=== PATIENT | female | born 1995 | race Two or more races ===

== ENCOUNTER → 2022-06-21 | Outpatient (CLI) | payer BC ==
[2022-06-21 09:57] LABS: Basophils # (auto) 0 10 ^3/uL (0-0.2); Basophils % (auto) 0.2 % (0.0-2.0); Eosinophils # (auto) 0.1 10 ^3/uL (0-0.8); Eosinophils % (auto) 1.1 % (0.0-7.0); Hematocrit 39.8 % (36.0-46.0); Hemoglobin 13.5 g/dL (12.2-16.2); Lymphocytes # (auto) 1.3 10 ^3/uL (0.4-5.4); Mean Corpuscular Hemoglobin 29.6 pg (28.0-32.0); Mean Corpuscular Hgb Conc. 33.8 g/dL (32.0-36.0); Mean Corpuscular Volume 87.6 fL (80.0-100.0); Monocytes # (auto) 0.5 10 ^3/uL (0-1.3); Neutrophils # (auto) 7.9 10 ^3/uL (1.6-8.6); Neutrophils % (auto) 80.7 % (37.0-80.0); Red Blood Cells 4.54 10^6/uL (4.0-5.20); Red Cell Distribution Width 13.3 % (11.8-14.3); White Blood Cell 9.8 10^3/uL (4.4-10.8)
[2022-06-21 10:57] LABS: Alcohol, Urine < 3.0 mg/dL (0-10); Amphetamine Screen, Urine NEGATIVE (NEGATIVE); Barbiturate Scree,Urine NEGATIVE (NEGATIVE); Benzodiazephine Screen, Urine NEGATIVE (NEGATIVE); Cannabinoid Screen, Urine NEGATIVE (NEGATIVE); Cocaine Screen, Urine NEGATIVE (NEGATIVE); Opiate Scree,Urine NEGATIVE (NEGATIVE); Phencyclidine Screen, Urine NEGATIVE (NEGATIVE)
[2022-06-22 07:06] LABS: RPR Non Reactive (Non Reactive)
== END | disposition home or self-care (01) ==
LOC: LAB 09:17
PROVIDERS: ATTEND Obstetrics & Gynecology Obstetrics
DX: Z11.3 Encounter for screening for infections with a predominantly sexual mode of transmission (principal); N39.0 Urinary tract infection, site not specified; Z31.430 Encounter of female for testing for genetic disease carrier status for procreative management; Z34.80 Encounter for supervision of other normal pregnancy, unspecified trimester
CPT/HCPCS: 36415; 80307; 83036; 84112; 84144; 84702; 85025; 86592; 86703; 86762; 86850; 86900; 86901; 87086; 87340

== ENCOUNTER → 2022-09-14 | Outpatient (CLI) | payer BC ==
[2022-09-14 08:50] LABS: Basophils # (auto) 0 10 ^3/uL (0-0.2); Basophils % (auto) 0.3 % (0.0-2.0); Eosinophils # (auto) 0.2 10 ^3/uL (0-0.8); Hematocrit 37.8 % (36.0-46.0); Hemoglobin 13.2 g/dL (12.2-16.2); Lymphocytes # (auto) 1.7 10 ^3/uL (0.4-5.4); Mean Corpuscular Hemoglobin 31.2 pg (28.0-32.0); Mean Corpuscular Hgb Conc. 34.9 g/dL (32.0-36.0); Mean Corpuscular Volume 89.2 fL (80.0-100.0); Monocytes # (auto) 0.5 10 ^3/uL (0-1.3); Monocytes % (auto) 5.5 % (0.0-12.0); Neutrophils # (auto) 7.3 10 ^3/uL (1.6-8.6); Neutrophils % (auto) 75.2 % (37.0-80.0); Red Blood Cells 4.23 10^6/uL (4.0-5.20); Red Cell Distribution Width 12.3 % (11.8-14.3); White Blood Cell 9.8 10^3/uL (4.4-10.8)
[2022-09-14 09:19] LABS: Albumin 2.8 g/dL (3.4-5.0); Calcium 8.3 mg/dL (8.5-10.1); Potassium 3.8 mmol/L (3.5-5.1)
[2022-09-14 09:23] LABS: BUN/Creatinine Ratio 20.5; Bilirubin, Total 0.5 mg/dL (0.2-1.0); Total Protein 6.9 g/dL (6.4-8.2)
== END | disposition home or self-care (01) ==
LOC: LAB 08:38
PROVIDERS: ATTEND Nurse Practitioner Family
DX: Z34.90 Encounter for supervision of normal pregnancy, unspecified, unspecified trimester (principal); Z3A.00 Weeks of gestation of pregnancy not specified
CPT/HCPCS: 36415; 80053; 84702; 85025

== ENCOUNTER → 2022-09-28 | Outpatient (CLI) | payer BC ==
[2022-09-28 08:48] LABS: Basophils # (auto) 0 10 ^3/uL (0-0.2); Basophils % (auto) 0.4 % (0.0-2.0); Eosinophils # (auto) 0.2 10 ^3/uL (0-0.8); Eosinophils % (auto) 2.6 % (0.0-7.0); Hematocrit 35.7 % (36.0-46.0); Hemoglobin 12.5 g/dL (12.2-16.2); Lymphocytes # (auto) 1.6 10 ^3/uL (0.4-5.4); Lymphocytes % (auto) 17.5 % (10.0-50.0); Mean Corpuscular Hemoglobin 30.8 pg (28.0-32.0); Mean Corpuscular Hgb Conc. 34.9 g/dL (32.0-36.0); Mean Corpuscular Volume 88.2 fL (80.0-100.0); Monocytes # (auto) 0.6 10 ^3/uL (0-1.3); Monocytes % (auto) 6.2 % (0.0-12.0); Neutrophils # (auto) 6.9 10 ^3/uL (1.6-8.6); Neutrophils % (auto) 73.3 % (37.0-80.0); Red Blood Cells 4.05 10^6/uL (4.0-5.20); Red Cell Distribution Width 12.2 % (11.8-14.3); White Blood Cell 9.4 10^3/uL (4.4-10.8)
== END | disposition home or self-care (01) ==
LOC: LAB 08:35
PROVIDERS: ATTEND Obstetrics & Gynecology
DX: Z34.80 Encounter for supervision of other normal pregnancy, unspecified trimester (principal); Z3A.00 Weeks of gestation of pregnancy not specified
CPT/HCPCS: 36415; 82951; 83036; 85025

== ENCOUNTER 2022-10-20 16:11 | Observation (INO) | payer BC ==
[2022-10-20] MEDS ORDERED: METF500S PO (17:16)
[2022-10-20] MEDS ORDERED: PREN-96 PO (17:16)
== END 2022-10-20 17:22 | disposition home or self-care (01) ==
LOC: LDRP 16:11 → UNDOADMOB 16:11 → LDRP 16:32 → UNDODISOB 17:22
PROVIDERS: ADMIT Obstetrics & Gynecology; ATTEND Obstetrics & Gynecology
DX: O60.03 Preterm labor without delivery, third trimester (principal); O24.419 Gestational diabetes mellitus in pregnancy, unspecified control; Z3A.31 31 weeks gestation of pregnancy
CPT/HCPCS: 59025; 76818; 81002; 82962; 94760

== ENCOUNTER 2022-10-24 08:18 | Observation (INO) | payer BC ==
[~2022-10-24 08:18] MED LIST: METF500S PO; PREN-96 PO
== END 2022-10-24 17:27 | disposition home or self-care (01) ==
LOC: LDRP 16:11
PROVIDERS: ADMIT Obstetrics & Gynecology Obstetrics; ATTEND Obstetrics & Gynecology Obstetrics
DX: O24.419 Gestational diabetes mellitus in pregnancy, unspecified control (principal); O60.03 Preterm labor without delivery, third trimester; Z3A.32 32 weeks gestation of pregnancy
CPT/HCPCS: 59025; 76818; 81002; 82948; 82962; 94760; G0378

== ENCOUNTER 2022-10-27 16:10 | Observation (INO) | payer BC ==
[~2022-10-27] VITALS: Ht 162.6 cm; Wt 72.6 kg
== END 2022-10-27 17:20 | disposition home or self-care (01) ==
LOC: LDRP 16:10 → UNDOADMOB 16:10 → LDRP 16:13
PROVIDERS: ADMIT Obstetrics & Gynecology; ATTEND Obstetrics & Gynecology
DX: O24.419 Gestational diabetes mellitus in pregnancy, unspecified control (principal); O60.03 Preterm labor without delivery, third trimester; Z3A.32 32 weeks gestation of pregnancy
CPT/HCPCS: 59025; 76818; 81002; 82948; 82962; 94760; G0378

== ENCOUNTER 2022-10-31 09:13 | Observation (INO) | payer BC | END 2022-11-01 21:37 | disposition home or self-care (01) | LOC: LDRP 11-01 18:33 | PROVIDERS: ADMIT Obstetrics & Gynecology Obstetrics; ATTEND Obstetrics & Gynecology Obstetrics | DX: O24.419 Gestational diabetes mellitus in pregnancy, unspecified control (principal); O60.03 Preterm labor without delivery, third trimester; Z3A.33 33 weeks gestation of pregnancy | CPT/HCPCS: 59025; 76818; 81002; 82948; 82962; 94760; G0378 ==

== ENCOUNTER 2022-11-12 10:46 | Observation (INO) | payer BC ==
[~2022-11-12] VITALS: Ht 160 cm; Wt 73.5 kg
[2022-11-12] MEDS ORDERED: HYDR250I6 IM (12:07)
== END 2022-11-12 13:38 | disposition home or self-care (01) ==
LOC: LDRP 10:46
PROVIDERS: ADMIT Obstetrics & Gynecology; ATTEND Obstetrics & Gynecology
DX: O36.8130 Decreased fetal movements, third trimester, not applicable or unspecified (principal); O62.9 Abnormality of forces of labor, unspecified; O26.893 Other specified pregnancy related conditions, third trimester; R42 Dizziness and giddiness; O24.419 Gestational diabetes mellitus in pregnancy, unspecified control; Z3A.35 35 weeks gestation of pregnancy
CPT/HCPCS: 59025; 76818; 81002; 82948; 82962; 94760; G0378

== ENCOUNTER 2022-11-16 14:17 | Observation (INO) | payer BC | END 2022-11-16 15:27 | disposition home or self-care (01) | LOC: LDRP 14:17 → UNDOADMOB 14:17 → LDRP 14:38 | PROVIDERS: ADMIT Obstetrics & Gynecology; ATTEND Obstetrics & Gynecology | DX: O24.419 Gestational diabetes mellitus in pregnancy, unspecified control (principal); O62.9 Abnormality of forces of labor, unspecified; O99.333 Smoking (tobacco) complicating pregnancy, third trimester; F17.200 Nicotine dependence, unspecified, uncomplicated; Z3A.35 35 weeks gestation of pregnancy | CPT/HCPCS: 59025; 76818; 81002; 82948; 82962; 94760; G0378 ==

== ENCOUNTER → 2022-11-16 | Outpatient (CLI) | payer BC ==
[~2022-11-16] MED LIST changes: +HYDR250I6 IM
[2022-11-16 09:52] LABS: Basophils # (auto) 0 10 ^3/uL (0-0.2); Basophils % (auto) 0.4 % (0.0-2.0); Eosinophils # (auto) 0.2 10 ^3/uL (0-0.8); Hematocrit 35.6 % (36.0-46.0); Hemoglobin 11.9 g/dL (12.2-16.2); Lymphocytes # (auto) 1.6 10 ^3/uL (0.4-5.4); Lymphocytes % (auto) 18.5 % (10.0-50.0); Mean Corpuscular Hemoglobin 28.4 pg (28.0-32.0); Mean Corpuscular Hgb Conc. 33.4 g/dL (32.0-36.0); Mean Corpuscular Volume 84.8 fL (80.0-100.0); Monocytes # (auto) 0.4 10 ^3/uL (0-1.3); Monocytes % (auto) 5.2 % (0.0-12.0); Neutrophils # (auto) 6.2 10 ^3/uL (1.6-8.6); Neutrophils % (auto) 73.9 % (37.0-80.0); Red Blood Cells 4.19 10^6/uL (4.0-5.20); Red Cell Distribution Width 13.3 % (11.8-14.3); White Blood Cell 8.4 10^3/uL (4.4-10.8)
[2022-11-17 07:06] LABS: RPR Non Reactive (Non Reactive)
== END | disposition home or self-care (01) ==
LOC: LAB 09:30
PROVIDERS: ATTEND Obstetrics & Gynecology
DX: Z34.80 Encounter for supervision of other normal pregnancy, unspecified trimester (principal); Z3A.00 Weeks of gestation of pregnancy not specified
CPT/HCPCS: 36415; 84112; 85025; 86592

== ENCOUNTER 2022-11-22 08:10 | Observation (INO) | payer BC | END 2022-11-22 12:35 | disposition home or self-care (01) | LOC: LDRP 11:09 → UNDOADMOB 11:09 → LDRP 12:08 → UNDODISOB 12:35 | PROVIDERS: ADMIT Obstetrics & Gynecology; ATTEND Obstetrics & Gynecology | DX: O24.419 Gestational diabetes mellitus in pregnancy, unspecified control (principal); O99.333 Smoking (tobacco) complicating pregnancy, third trimester; F17.200 Nicotine dependence, unspecified, uncomplicated; Z3A.36 36 weeks gestation of pregnancy | CPT/HCPCS: 59025; 76818; 81002; 82948; 82962; G0378 ==

== ENCOUNTER 2022-11-24 07:44 | Observation (INO) | payer BC | END 2022-11-24 09:45 | disposition home or self-care (01) | LOC: LDRP 08:14 → UNDOADMOB 08:14 → LDRP 08:27 | PROVIDERS: ADMIT Obstetrics & Gynecology; ATTEND Obstetrics & Gynecology | DX: O24.419 Gestational diabetes mellitus in pregnancy, unspecified control (principal); O99.333 Smoking (tobacco) complicating pregnancy, third trimester; F17.200 Nicotine dependence, unspecified, uncomplicated; Z3A.36 36 weeks gestation of pregnancy | CPT/HCPCS: 59025; 76818; 81002; 82948; 82962; 94760; G0378 ==

== ENCOUNTER 2022-11-29 08:11 | Observation (INO) | payer BC | END 2022-11-29 09:42 | disposition home or self-care (01) | LOC: LDRP 08:11 → UNDOADMOB 08:11 → LDRP 08:51 | PROVIDERS: ADMIT Obstetrics & Gynecology; ATTEND Obstetrics & Gynecology | DX: O24.415 Gestational diabetes mellitus in pregnancy, controlled by oral hypoglycemic drugs (principal); O62.9 Abnormality of forces of labor, unspecified; Z3A.37 37 weeks gestation of pregnancy; Z79.84 Long term (current) use of oral hypoglycemic drugs | CPT/HCPCS: 59025; 76818; 81002; 82962; 94760; G0378 ==

== ENCOUNTER 2022-12-01 08:19 | Observation (INO) | payer BC | END 2022-12-01 09:33 | disposition home or self-care (01) | LOC: UNDOADMOB 08:19 → LDRP 08:19 | PROVIDERS: ADMIT Obstetrics & Gynecology; ATTEND Obstetrics & Gynecology | DX: O24.419 Gestational diabetes mellitus in pregnancy, unspecified control (principal); O62.9 Abnormality of forces of labor, unspecified; Z3A.37 37 weeks gestation of pregnancy | CPT/HCPCS: 59025; 76818; 81002; 82948; 82962; 94760; G0378 ==

== ENCOUNTER 2022-12-04 09:00 | Observation (INO) | payer BC | END 2022-12-04 10:47 | disposition home or self-care (01) | LOC: LDRP 09:00 | PROVIDERS: ADMIT Obstetrics & Gynecology; ATTEND Obstetrics & Gynecology | DX: O24.415 Gestational diabetes mellitus in pregnancy, controlled by oral hypoglycemic drugs (principal); O41.03X0 Oligohydramnios, third trimester, not applicable or unspecified; O62.9 Abnormality of forces of labor, unspecified; Z3A.38 38 weeks gestation of pregnancy; Z79.84 Long term (current) use of oral hypoglycemic drugs | CPT/HCPCS: 59025; 76818; 81002; 82948; 82962; G0378 ==

== ENCOUNTER 2022-12-06 08:22 | Observation (INO) | payer BC | END 2022-12-06 12:50 | disposition home or self-care (01) | LOC: LDRP 11:10 → UNDOADMOB 11:10 → LDRP 12:05 → UNDODISOB 12:30 | PROVIDERS: ADMIT Obstetrics & Gynecology; ATTEND Obstetrics & Gynecology | DX: O24.419 Gestational diabetes mellitus in pregnancy, unspecified control (principal); Z3A.38 38 weeks gestation of pregnancy | CPT/HCPCS: 59025; 76818; 81002; 82948; 94760; G0378 ==

== ENCOUNTER 2022-12-08 07:31 | Observation (INO) | payer BC | END 2022-12-08 12:32 | disposition home or self-care (01) | LOC: LDRP 10:01 → UNDOADMOB 10:01 → LDRP 10:34 → UNDODISOB 12:32 | PROVIDERS: ADMIT Obstetrics & Gynecology; ATTEND Obstetrics & Gynecology | DX: O24.419 Gestational diabetes mellitus in pregnancy, unspecified control (principal); Z3A.38 38 weeks gestation of pregnancy | CPT/HCPCS: 59025; 76818; 81002; 82948; 82962; 94760; G0378 ==

== ENCOUNTER 2022-12-11 20:05 | Inpatient (IN) | payer BC ==
[~2022-12-11] VITALS: Ht 157.5 cm; Wt 74.4 kg
[~2022-12-11 20:05] MED LIST changes: -HYDR250I6 IM
[2022-12-11] MEDS ORDERED: LIDOCAINE 2%HCL (LOCAL ANESTH.) INJ 20ML MDV IJ PRN (20:15)
[2022-12-11] MEDS ORDERED: WITCH HAZEL-GLYCERIN PAD TOP PRN (20:15)
[2022-12-11] MEDS ORDERED: BUTORPHANOL TARTRATE 2 MG/1 ML VIAL IV PRN ×2 (20:15)
[2022-12-11] MEDS ORDERED: PROMETHAZINE HCL 25 MG/ML 1ML IV PRN (20:15)
[2022-12-11] MEDS ORDERED: PHISODERM TOP SOLN 240ML BTL TOP PRN (20:15)
[2022-12-11] MEDS: LACTATED RINGER'S 1,000 ML IV SCH (21:00)
[2022-12-11 21:27] LABS: Urine Bacteria FEW /hpf (None Seen); Urine Blood Negative /uL (Negative); Urine Mucus FEW (None Seen); Urine Specific Gravity 1.032 (1.001-1.035); Urine WBC 5 /hpf (0 - 5)
[2022-12-11 21:42] LABS: Albumin 2.7 g/dL (3.4-5.0); BUN/Creatinine Ratio 19.3; Calcium 8.8 mg/dL (8.5-10.1); Hematocrit 34.4 % (36.0-46.0); Hemoglobin 11.2 g/dL (12.2-16.2); Mean Corpuscular Hemoglobin 27.7 pg (28.0-32.0); Mean Corpuscular Hgb Conc. 32.6 g/dL (32.0-36.0); Mean Corpuscular Volume 85.1 fL (80.0-100.0); Potassium 3.8 mmol/L (3.5-5.1); Red Blood Cells 4.04 10^6/uL (4.0-5.20); Red Cell Distribution Width 14.2 % (11.8-14.3); White Blood Cell 7.9 10^3/uL (4.4-10.8)
[2022-12-11 21:43] LABS: Amphetamine Screen, Urine NEGATIVE (NEGATIVE); Barbiturate Scree,Urine NEGATIVE (NEGATIVE); Benzodiazephine Screen, Urine NEGATIVE (NEGATIVE); Cannabinoid Screen, Urine NEGATIVE (NEGATIVE); Cocaine Screen, Urine NEGATIVE (NEGATIVE); Opiate Scree,Urine NEGATIVE (NEGATIVE); Phencyclidine Screen, Urine NEGATIVE (NEGATIVE)
[2022-12-11 21:45] LABS: Bilirubin, Total 0.5 mg/dL (0.2-1.0); Total Protein 6.6 g/dL (6.4-8.2)
[2022-12-11] MEDS: miSOPROStol 50 MCG per PRE-CUT 1/2 TAB PO PRN (21:45)
[2022-12-11 21:48] LABS: INR 0.9 (0.9-1.15); Partial Thromboplastin Time 25.9 sec (24.6-33.4)
[2022-12-11 21:53] LABS: Band Neutrophils % (manual) 0; Basophils % (manual) 0 (0.0-2.0); Metamyelocytes % 0
[2022-12-11 21:54] LABS: Blast Cells 0; Myelocytes % 0; Promyelocytes % 0; Reactive Lymphocytes 0
[2022-12-11] MEDS: DERMOPLAST 60ML BOTTLE TOP PRN (21:54)
[2022-12-11 22:11] LABS: Eosinophils % (manual) 1 (0-7); Lymphocytes % (manual) 16 (10.0-50.0); Monocytes % (manual) 2 (0-12)
[2022-12-12] MEDS: LACTATED RINGER'S 1,000 ML IV SCH ×2 (00:55→06:50)
[2022-12-12] MEDS: miSOPROStol 50 MCG per PRE-CUT 1/2 TAB PO PRN (01:45)
[2022-12-12] MEDS ORDERED: TERBUTALINE SULFATE 1 MG/ML 1ML VIAL SC PRN (07:00)
[2022-12-12] MEDS ORDERED: LACT. RINGERS/OXYTOCIN 20UNITS 500 ML IV ONE ×3 (07:00→12:30)
[2022-12-12] MEDS ORDERED: ONDANSETRON ODT 4 MG TAB PO PRN (08:45)
[2022-12-12] MEDS: ACETAMINOPHEN 325 MG TAB PO PRN ×2 (08:54→19:14)
[2022-12-12 10:47] VITALS: BP 98/58
[2022-12-12] MEDS: IBUPROFEN 600 MG TAB PO PRN ×2 (12:39→22:28)
[2022-12-12 14:55] VITALS: BP 96/60
[2022-12-12 19:00] VITALS: BP 104/61
[2022-12-12] MEDS ORDERED: DOCUSATE SOD 100 MG CAP PO SCH (22:00)
[2022-12-12] MEDS ORDERED: metFORMIN HYDROCHLORIDE 500 MG TAB PO SCH (22:00)
[2022-12-12 22:30] VITALS: BP 115/63
[2022-12-13 03:00] VITALS: BP 94/52
[2022-12-13] MEDS: ACETAMINOPHEN 325 MG TAB PO PRN (05:52)
[2022-12-13 06:44] VITALS: BP 110/73
[2022-12-13] MEDS ORDERED: MEASLES, MUMPS & RUBELLA VAC(MMRII) 0.5ML SC ONE (06:45)
[2022-12-13 08:06] LABS: RPR Non Reactive (Non Reactive)
[2022-12-13] MEDS: DERMOPLAST 60ML BOTTLE TOP PRN (10:12)
== END 2022-12-13 10:15 | disposition home or self-care (01) | DRG 807 ==
LOC: LDRP 20:05
PROVIDERS: ADMIT Obstetrics & Gynecology; ATTEND Obstetrics & Gynecology
PROC: 10D07Z6 Extraction of Products of Conception, Vacuum, Via Natural or Artificial Opening (ICD-10-PCS; principal; 2022-12-12)
PROC: 0HQ9XZZ Repair Perineum Skin, External Approach (ICD-10-PCS; 2022-12-12)
PROC: 10907ZC Drainage of Amniotic Fluid, Therapeutic from Products of Conception, Via Natural or Artificial Opening (ICD-10-PCS; 2022-12-12)
DX: O24.429 Gestational diabetes mellitus in childbirth, unspecified control (principal); Z37.0 Single live birth; Z3A.39 39 weeks gestation of pregnancy; Z20.822 Contact with and (suspected) exposure to COVID-19; O70.0 First degree perineal laceration during delivery
CPT/HCPCS: 36415; 59025; 59409; 76815; 80053; 80307; 81001; 82948; 82962; 85007; 85027; 85610; 85730; 86592; 86850; 86900; 86901; 87426; 94760; 96360; 96361; 96372; G0378; J2590

== ENCOUNTER → 2025-03-05 | Outpatient (CLI) | payer BC ==
[~2025-03-05] MED LIST changes: -METF500S PO; +METF500S3 PO
[2025-03-05 15:05] LABS: Basophils # (auto) 0.1 10 ^3/uL (0-0.2); Basophils % (auto) 0.6 % (0.0-2.0); Eosinophils # (auto) 0.2 10 ^3/uL (0-0.8); Eosinophils % (auto) 2.1 % (0.0-7.0); Hematocrit 42.9 % (36.0-46.0); Hemoglobin 14.7 g/dL (12.2-16.2); Lymphocytes # (auto) 2.3 10 ^3/uL (0.4-5.4); Lymphocytes % (auto) 19.6 % (10.0-50.0); Mean Corpuscular Hemoglobin 29.9 pg (28.0-32.0); Mean Corpuscular Hgb Conc. 34.2 g/dL (32.0-36.0); Mean Corpuscular Volume 87.6 fL (80.0-100.0); Monocytes # (auto) 0.6 10 ^3/uL (0-1.3); Monocytes % (auto) 4.8 % (0.0-12.0); Neutrophils # (auto) 8.4 10 ^3/uL (1.6-8.6); Neutrophils % (auto) 72.9 % (37.0-80.0); Nucleated Red Blood Cells % 0.1 %; Platelet Count (auto) 375 10^3/uL (140-450); White Blood Cell 11.5 10^3/uL (4.4-10.8)
[2025-03-05 15:36] LABS: Alanine Aminotransferase 24 U/L (7-40); Alkaline Phosphatase 58 U/L (46-116); Anion Gap 11 (5-15); BUN/Creatinine Ratio 11.9 (10.0-20.0); Bilirubin, Total 0.7 mg/dL (0.2-1.0); Calcium 10.3 mg/dL (8.7-10.4); Carbon Dioxide 24 mmol/L (20-31); Chloride 102 mmol/L (98-107); Glucose 100 mg/dL (74-106); Potassium 3.6 mmol/L (3.5-5.1); Sodium 137 mmol/L (136-145); Total Protein 7.7 g/dL (5.7-8.2)
[2025-03-05 15:38] LABS: Aspartate Aminotransferase 11 U/L (13-40); Blood Urea Nitrogen 7 mg/dL (9-23)
[2025-03-05 15:39] LABS: Thyroid Stimulating Hormone 0.83 uIU/mL (0.55-4.78)
[2025-03-05 15:49] LABS: Beta HCG, Quantitative 76915.6 mIU/mL (1.5-4.2)
== END | disposition home or self-care (01) ==
LOC: LAB 14:41
DX: Z32.01 Encounter for pregnancy test, result positive (principal); Z79.899 Other long term (current) drug therapy
CPT/HCPCS: 36415; 80053; 83036; 84443; 84702; 85025

== ENCOUNTER → 2025-03-26 | Outpatient (CLI) | payer BC ==
[2025-03-26 16:01] LABS: Basophils # (auto) 0 10 ^3/uL (0-0.2); Basophils % (auto) 0.5 % (0.0-2.0); Eosinophils # (auto) 0.2 10 ^3/uL (0-0.8); Eosinophils % (auto) 2.6 % (0.0-7.0); Hematocrit 39.8 % (36.0-46.0); Hemoglobin 14.2 g/dL (12.2-16.2); Lymphocytes # (auto) 1.6 10 ^3/uL (0.4-5.4); Lymphocytes % (auto) 19.9 % (10.0-50.0); Mean Corpuscular Hemoglobin 30.9 pg (28.0-32.0); Mean Corpuscular Hgb Conc. 35.7 g/dL (32.0-36.0); Mean Corpuscular Volume 86.5 fL (80.0-100.0); Monocytes # (auto) 0.6 10 ^3/uL (0-1.3); Monocytes % (auto) 6.8 % (0.0-12.0); Neutrophils # (auto) 5.7 10 ^3/uL (1.6-8.6); Neutrophils % (auto) 70.2 % (37.0-80.0); Platelet Count (auto) 281 10^3/uL (140-450); White Blood Cell 8.2 10^3/uL (4.4-10.8)
[2025-03-26 16:15] LABS: Amphetamine Screen, Urine Neg (NEGATIVE); Barbiturate Scree,Urine Neg (NEGATIVE); Benzodiazephine Screen, Urine Neg (NEGATIVE); Cannabinoid Screen, Urine Neg (NEGATIVE); Cocaine Screen, Urine Neg (NEGATIVE); Opiate Scree,Urine Neg (NEGATIVE); Phencyclidine Screen, Urine Neg (NEGATIVE)
[2025-03-28 07:07] LABS: Chlamydia Trachomatis, NAA Negative (Negative); Neisseria gonorrhoeae, NAA Negative (Negative)
== END | disposition home or self-care (01) ==
LOC: LAB 14:57
PROVIDERS: ATTEND Obstetrics & Gynecology
DX: Z34.80 Encounter for supervision of other normal pregnancy, unspecified trimester (principal); Z3A.00 Weeks of gestation of pregnancy not specified
CPT/HCPCS: 36415; 80307; 83036; 84144; 84702; 85025; 86703; 86762; 86780; 86850; 86900; 86901; 87086; 87340

== ENCOUNTER → 2025-04-09 | Outpatient (CLI) | payer BC | END | disposition home or self-care (01) | LOC: LAB 08:36 | PROVIDERS: ATTEND Obstetrics & Gynecology | DX: Z34.80 Encounter for supervision of other normal pregnancy, unspecified trimester (principal); Z3A.00 Weeks of gestation of pregnancy not specified | CPT/HCPCS: 82951 ==

== ENCOUNTER 2025-08-06 10:17 | Observation (INO) | payer BC ==
--- NOTE | 2025-08-08 16:30 | DVHDS2 ---
Physician Discharge Progress N Final Diagnosis: gdm 30wks Operations or Procedures: Operations or Procedures nst reactive reviwed,sono Condition on Discharge: Good Disposition: Home Discharge Instructions: Diet: Consistent carbohydrate Activity: Light activity Medications: na Follow Up Care: Specialist: 3d Discharge Statement: "Patient was advised to return to the ER or call 911 if any headaches, dizziness, shortness of breath, chest pain, abdominal pain, bleeding, fevers, or worsening of medical condition. Patient was counseled about treatment plan, medications, possible side effects, patientverbalized understanding. All questions were answered to the best of my ability. This discharge took greater then 30 minutes in planning, reviewing document ation, counseling the patient, and discussing with other team members." Visit Coding OBGYN Date of Service: Aug 06, 2025 Billing Provider: JORDY AVALOS DO SSDS MK 2 ADVANCED OPERATOR Common Visit Codes: [id number] OBS CARE (HIGH) SSDS MK 2 ADVANCED OPERATOR Procedure Codes: 30792-66- NON-STRESS TEST JORDY AVALOS DO Aug 08, 2025 16:30
== END 2025-08-06 11:20 | disposition home or self-care (01) ==
LOC: LDRP 10:17
PROVIDERS: ADMIT Obstetrics & Gynecology; ATTEND Obstetrics & Gynecology
DX: O24.419 Gestational diabetes mellitus in pregnancy, unspecified control (principal); Z3A.30 30 weeks gestation of pregnancy; Z98.890 Other specified postprocedural states
CPT/HCPCS: 59025; 81002; 82948; 82962; 94760; G0378

== ENCOUNTER 2025-08-13 08:01 | Observation (INO) | payer BC ==
[~2025-08-13] VITALS: Ht 162.6 cm; Wt 77.1 kg
--- NOTE | 2025-08-13 13:19 | DVHDS2 ---
Physician Discharge Progress N Final Diagnosis: gdm 31wks Operations or Procedures: Operations or Procedures nst reactive reviwed,sono Condition on Discharge: Good Disposition: Home Discharge Instructions: Diet: Consistent carbohydrate Activity: Light activity Medications: na Follow Up Care: Specialist: fu 4d Discharge Statement: "Patient was advised to return to the ER or call 911 if any headaches, dizziness, shortness of breath, chest pain, abdominal pain, bleeding, fevers, or worsening of medical condition. Patient was counseled about treatment plan, medications, possible side effects, patientverbalized understanding. All questions were answered to the best of my ability. This discharge took greater then 30 minutes in planning, reviewing docum entation, counseling the patient, and discussing with other team members." Visit Coding OBGYN Date of Service: Aug 13, 2025 Billing Provider: JORDY AVALOS DO PROFESSIONAL SECURITY OFFICER Common Visit Codes: [id number] OBS CARE (HIGH) PROFESSIONAL SECURITY OFFICER Procedure Codes: 32862-53- NON-STRESS TEST JORDY AVALOS DO Aug 13, 2025 13:19
== END 2025-08-13 09:02 | disposition home or self-care (01) ==
LOC: LDRP 08:09
PROVIDERS: ADMIT Obstetrics & Gynecology; ATTEND Obstetrics & Gynecology
DX: O24.419 Gestational diabetes mellitus in pregnancy, unspecified control (principal); Z3A.31 31 weeks gestation of pregnancy; Z98.890 Other specified postprocedural states
CPT/HCPCS: 59025; 81002; 82948; 82962; 94760; G0378

== ENCOUNTER 2025-08-20 06:08 | Observation (INO) | payer BC ==
--- NOTE | 2025-08-20 09:11 | DVH ---
CLINICAL HISTORY: Gestational diabetes. COMPARISON: BIOPHYSICAL PROFILE on DOS: 12/08/22, BPP on DOS: 12/08/22, BIOPHYSICAL PROFILE on DOS: 11/20 06/11 TECHNIQUE: biophysical profile was performed. Transabdominal sonographic images of the fetus we re obtained. FINDINGS: The fetus is in transverseposition, with head to the maternal right side. heart rate measures 139 BPM. Amniotic fluid index measures 11.5 cm. The placenta is posterior in position withou t evidence of previa or abruption visualized. Cervix is closed and measures up to 4.8 cm in length. BPP profile is an overall score of 8/8, with 2/2 points for breathing, with at least one episode of breathing over a 30 second duration during a 30 minute observation, 2/2 points for m ovements, with 3 or more discrete body or limb movements, 2/2 points for tone, with one or more episodes of extremity extension with return to flexion, or opening and closing of hand, and 2/ 2 points for amniotic fluid, with at least 1 pocket of amniotic fluid that measures 2 cm in 2 perpend icular planes. IMPRESSION: 1. BPP score of 8/8. 2. Transverse presentation with head to the maternal right side.
--- NOTE | 2025-08-20 13:55 | DVHDS2 ---
Physician Discharge Progress N Final Diagnosis: [id number] Operations or Procedures: Operations or Procedures nst reactive reviwed,sono Condition on Discharge: Good Disposition: Home Discharge Instructions: Diet: Regular, Consistent carbohydrate Activity: No Restrictions, As Tolerated Medications: na Follow Up Care: Specialist: 1w Discharge Statement: "Patient was advised to return to the ER or call 911 if any headaches, dizziness, shortness of breath, chest pain, abdominal pain, bleeding, fevers, or worsening of medical condition. Patient was counseled about treatment plan, medications, possible side effects, patientverbalized understanding. All questions were answered to the best of my ability. This discharge took greater then 30 minutes in planning, reviewing documentation, counseling the patient, and discussing with other team members." Visit Coding OBGYN Date of Service: Aug 20, 2025 Billing Provider: JORDY AVALOS DO EMERGENCY DEPARTMENT TECHNICIAN Common Visit Codes: [id number] OBS CARE (HIGH) EMERGENCY DEPARTMENT TECHNICIAN Procedure Codes: 38635-46- NON-STRESS TEST JORDY AVALOS DO Aug 20, 2025 13:55
== END 2025-08-20 09:13 | disposition home or self-care (01) ==
LOC: LDRP 08:05
PROVIDERS: ADMIT Obstetrics & Gynecology; ATTEND Obstetrics & Gynecology
DX: O24.419 Gestational diabetes mellitus in pregnancy, unspecified control (principal); Z3A.32 32 weeks gestation of pregnancy; Z98.890 Other specified postprocedural states
CPT/HCPCS: 76818; 81002; 82948; 82962; 94760; G0378; 59025; 76819

== ENCOUNTER 2025-08-23 08:03 | Observation (INO) | payer BC ==
--- NOTE | 2025-08-23 08:57 | DVH ---
BIOPHYSICAL PROFILE HISTORY: GDMA2 TECHNIQUE: Multiple transabdominal real-time grayscale sonographic images through the gravid uterus of the fetus with duplex Doppler color flow and M-mode spectral analysis FINDINGS: BIOPHYSICAL PROFILE: breathing score: 2 movement score: 2 tone score: 2 Quantitative AUDI score: 2 (AUDI: 9.7 Cm.) Total score: 8/8 The cervix obscured by head Single live fetus in cephalic presentation. heart rate 142 beats per minute. Posterior Grade 2-3 placenta without previa or abruption Single live fetus at 32 weeks 4 days Biophysical profile score 8/8 corresponding to an MELVIN of 10/14/2025 IMPRESSION: 1. Biophysical profile score: 8/8
--- NOTE | 2025-08-24 09:44 | DVHDS2 ---
Physician Discharge Progress N Final Diagnosis: GDM 32WKS Operations or Procedures: Operations or Procedures NST REACTIVE REVIWED,SONO Condition on Discharge: Good Disposition: Home Discharge Instructions: Diet: Consistent carbohydrate Activity: Light activity Medications: NA Follow Up Care: Specialist: 3D Discharge Statement: "Patient was advised to return to the ER or call 911 if any headaches, dizziness, shortness of breath, chest pain, abdominal pain, bleeding, fevers, or worsening of medical condition. Patient was counseled about treatment plan, medications, possible side effects, patientverbalized understanding. All questions were answered to the best of my ability. This discharge took greater then 30 minutes in planning, reviewing documenta tion, counseling the patient, and discussing with other team members." Visit Coding OBGYN Date of Service: Aug 23, 2025 Billing Provider: JORDY AVALOS DO SUBSTANCE ABUSE TECHNICIAN Common Visit Codes: [id number] OBS CARE (HIGH) SUBSTANCE ABUSE TECHNICIAN Procedure Codes: 49057-05- NON-STRESS TEST JORDY AVALOS DO Aug 24, 2025 09:44
== END 2025-08-23 09:19 | disposition home or self-care (01) ==
LOC: LDRP 08:03
PROVIDERS: ADMIT Obstetrics & Gynecology; ATTEND Obstetrics & Gynecology
DX: O24.419 Gestational diabetes mellitus in pregnancy, unspecified control (principal); Z3A.32 32 weeks gestation of pregnancy; Z98.890 Other specified postprocedural states
CPT/HCPCS: 76818; 81002; 82948; 82962; 94760; G0378; 59025; 76819

== ENCOUNTER 2025-08-27 07:37 | Observation (INO) | payer BC ==
--- NOTE | 2025-08-27 11:09 | DVH ---
BIOPHYSICAL PROFILE HISTORY: gdma2 Comparison Study: US BIOPHYSICAL PROFILE on DOS: 08/23/25, US BIOPHYSICAL PROFILE on DOS: 08/20/25, BIO PHYSICAL PROFILE on DOS: 12/08/22, BPP on DOS: 12/08/22, BIOPHYSICAL PROFILE on DOS: 12/06/22 TECHNIQUE: Multiple real-time grayscale sonographic images through the gravid uterus of the fetus wit h duplex doppler color flow and M-mode spectral analysis FINDINGS: BIOPHYSICAL PROFILE: breathing score: 2 movement score: 2 tone score: 2 Quantitative AUDI score: 2 (AUDI: 9.7 cm.) Total score: 8 The cervix is unremarkable Single live fetus in cephalic presentation. heart rate 145 beats per minute. Posterior placenta without previa or abruption IMPRESSION: Biophysical profile score: 8/
--- NOTE | 2025-08-27 14:04 | DVHDS2 ---
Physician Discharge Progress N Final Diagnosis: 33wks gdm Operations or Procedures: Operations or Procedures nst reactive reviwed,sono Condition on Discharge: Good Disposition: Home Discharge Instructions: Diet: Consistent carbohydrate Activity: No Restrictions, As Tolerated Medications: na Follow Up Care: Specialist: 1w Discharge Statement: "Patient was advised to return to the ER or call 911 if any headaches, dizziness, shortness of breath, chest pain, abdominal pain, bleeding, fevers, or worsening of medical condition. Patient was counseled about treatment plan, medications, possible side effects, patientverbalized understanding. All questions were answered to the best of my ability. This discharge took greater then 30 minutes in planning, reviewing documentation, counseling the patient, and discussing with other team members." Visit Coding OBGYN Date of Service: Aug 27, 2025 Billing Provider: JORDY AVALOS DO COATER HAND Common Visit Codes: [id number] OBS CARE (HIGH) COATER HAND Procedure Codes: 92645-48- NON-STRESS TEST JORDY AVALOS DO Aug 27, 2025 14:04
== END 2025-08-27 11:36 | disposition home or self-care (01) ==
LOC: LDRP 10:10
PROVIDERS: ADMIT Obstetrics & Gynecology; ATTEND Obstetrics & Gynecology
DX: O24.419 Gestational diabetes mellitus in pregnancy, unspecified control (principal); Z3A.33 33 weeks gestation of pregnancy; Z98.890 Other specified postprocedural states
CPT/HCPCS: 76818; 81002; 82948; 82962; 94760; G0378; 59025; 76819

== ENCOUNTER 2025-08-30 05:53 | Observation (INO) | payer BC ==
--- NOTE | 2025-08-30 09:32 | DVH ---
CLINICAL HISTORY: Gestational diabetes. COMPARISON: US BIOPHYSICAL PROFILE on DOS: 08/27/25, US BIOPHYSICAL PROFILE on DOS: 08/23/25, US BIOPHY SICAL PROFILE on DOS: 08/20/25 TECHNIQUE: biophysical profile was performed. Transabdominal sonographic images of the fetus we re obtained. FINDINGS: The fetus is in cephalic position. heart rate measures 147 BPM. Amniotic fluid index measures 9.6 cm. The placenta is fundal in position without evidence of previa or abruption visualize dii. BPP profile is an overall score of 8/8, with 2/2 points for breathing, with at least one episode of breathing over a 30 second duration during a 30 minute observation, 2/2 points for m ovements, with 3 or more discrete body or limb movements, 2/2 points for tone, with one or more episodes of extremity extension with return to flexion, or opening and closing of hand, and 2/ 2 points for amniotic fluid, with at least 1 pocket of amniotic fluid that measures 2 cm in 2 perpend icular planes. IMPRESSION: BPP score of 8/8.
--- NOTE | 2025-08-30 10:15 | DVHDS2 ---
Physician Discharge Progress N Final Diagnosis: GDM Secondary Diagnosis: Encounter for surveilance Operations or Procedures: Operations or Procedures NST/BPP/AUDI all reviewed, WNL Commentary: Commentary PATIENT: YONY STRINGER ACCT: [id number] UNIT: [id number] : 1995 LOC: LD ROOM / BED: TRIAGE1 / A AGE / SEX: 30 / F ADM STATUS: ADM IN SERVICE 7 ORDERING PHYSICIAN: NETTIE DEL ROSARIO DO PROCEDURE(s): BPP - BIOPHYSICAL PROFILE REASON: GDMA2 ORDER NUMBER(s): [id number], ACCESSION NUMBER(s): [id number] CLINICAL HISTORY: Gestational diabetes. COMPARISON: US BIOPHYSICAL PROFILE on DOS: 08/27/25, US BIOPHYSICAL PROFILE on DOS: 08/23/25, US BIOPHYSICAL PROFILE on DOS: 08/20/25 TECHNIQUE: biophysical profile was performed. Transabdominal sonographic images of the fetus were obtained. FINDINGS: The fetus is in cephalic position. heart rate measures 147 BPM. Amniotic fluid index measures 9.6 cm. The placenta is fundal in position without evidence of previa or abruption visualizedii. BPP profile is an overall score of 8/8, with 2/2 points for breathing, with at least one episode of breathing over a 30 second duration during a 30 minute observation, 2/2 points for movements, with 3 or more discrete body or limb movements, 2/2 points for tone, with one or more episodes of extremity extension with return to flexion, or opening and closing of hand, and 2/2 points for amniotic fluid, with at least 1 pocket of amniotic fluid that measures 2 cm in 2 perpendicular planes. IMPRESSION: BPP score of 8/8. ATED BY: DAVID SUNSHINE DO DICTATED DATE/TIME: 08/30/25928 Condition on Discharge: Stable Disposition: Home Discharge Instructions: Diet: Consistent carbohydrate Activity: No Restrictions, As Tolerated Medications: N/A Follow Up Care: Discharge Statement: "Patient was advised to return to the ER or call 911 if any headaches, dizziness, shortness of breath, chest pain, abdominal pain, bleeding, fevers, or worsening of medical condition. Patient was counseled about treatment plan, medications, possible side effects, patientverbalized understanding. All questions were answered to the best of my ability. This discharge took greater then 30 minutes in planning, reviewing documentation, counseling the patient, and discussing with other team members." Visit Coding OBGYN Date of Service: Aug 30, 2025 Billing Provider: NETTIE DEL ROSARIO DO FLEET TECHNICIAN Common Visit Codes: 72833-NBU/OBS SAME DATE (MOD) FLEET TECHNICIAN Procedure Codes: 96759-07- NON-STRESS TEST NETTIE DEL ROSARIO DO Aug 30, 2025 10:15
== END 2025-08-30 08:48 | disposition home or self-care (01) ==
LOC: LDRP 08:09
PROVIDERS: ADMIT Obstetrics & Gynecology; ATTEND Obstetrics & Gynecology
DX: O24.419 Gestational diabetes mellitus in pregnancy, unspecified control (principal); Z3A.33 33 weeks gestation of pregnancy; Z98.890 Other specified postprocedural states
CPT/HCPCS: 76818; 81002; 82948; 82962; 94760; G0378; 59025; 76819

== ENCOUNTER 2025-09-03 07:27 | Observation (INO) | payer BC ==
--- NOTE | 2025-09-03 08:59 | DVH ---
BIOPHYSICAL PROFILE HISTORY: GDMA2 Comparison Study: US BIOPHYSICAL PROFILE on DOS: 08/30/25, US BIOPHYSICAL PROFILE on DOS: 08/27/25, US BIOPHYSICAL PROFILE on DOS: 08/23/25, US BIOPHYSICAL PROFILE on DOS: 08/20/25, BIOPHYSICAL PROFILE on DOS: 12/08/22 TECHNIQUE: Multiple real-time grayscale sonographic images through the gravid uterus of the fetus wi th duplex Doppler color flow and M-mode spectral analysis FINDINGS: BIOPHYSICAL PROFILE: breathing score: 2 movement score: 2 tone score: 2 Quantitative AUDI score: 2 (AUDI: 9 Cm.) Total score: 8 The cervix is not visualized Single live fetus in cephalic presentation. heart rate 132 beats per minute. Right lateral/fundal placenta without previa or abruption IMPRESSION: Biophysical profile score: 8
--- NOTE | 2025-09-03 11:03 | DVHDS2 ---
Physician Discharge Progress N Final Diagnosis: gdm 36wks Operations or Procedures: Operations or Procedures nst reactive reviwed,sono Condition on Discharge: Good Disposition: Home Discharge Instructions: Diet: Consistent carbohydrate Activity: Light activity Medications: na Follow Up Care: Specialist: 3d Discharge Statement: "Patient was advised to return to the ER or call 911 if any headaches, dizziness, shortness of breath, chest pain, abdominal pain, bleeding, fevers, or worsening of medical condition. Patient was counseled about treatment plan, medications, possible side effects, patientverbalized understanding. All questions were answered to the best of my ability. This discharge took greater then 30 minutes in planning, reviewing documenta tion, counseling the patient, and discussing with other team members." Visit Coding OBGYN Date of Service: Sep 03, 2025 Billing Provider: JORDY AVALOS DO PROFESSOR OF BIOLOGY Common Visit Codes: [id number] OBS CARE (HIGH) PROFESSOR OF BIOLOGY Procedure Codes: 15361-62- NON-STRESS TEST JORDY AVALOS DO Sep 03, 2025 11:03
== END 2025-09-03 09:13 | disposition home or self-care (01) ==
LOC: LDRP 08:07 → UNDOADMOB 08:07 → LDRP 08:12 → UNDODISOB 09:13
PROVIDERS: ADMIT Obstetrics & Gynecology; ATTEND Obstetrics & Gynecology
DX: O24.419 Gestational diabetes mellitus in pregnancy, unspecified control (principal); Z3A.36 36 weeks gestation of pregnancy; Z98.890 Other specified postprocedural states; Z79.899 Other long term (current) drug therapy
CPT/HCPCS: 59025; 76819; 81002; 82948; 82962; 94760; G0378; 76818

== ENCOUNTER 2025-09-06 08:10 | Observation (INO) | payer BC ==
--- NOTE | 2025-09-06 09:38 | DVH ---
BIOPHYSICAL PROFILE HISTORY: gdma2 TECHNIQUE: Multiple real-time grayscale sonographic images through the gravid uterus of the fetus wi th duplex Doppler color flow. FINDINGS: BIOPHYSICAL PROFILE: breathing score: 2 movement score: 2 tone score: 2 Quantitative AUDI score: 2 Total score: 8 out of 8 Single live intrauterine . heart rate 131 beats per minute. AUDI 7.1 cm. Placenta pos teriorly positioned. lie cephalic. IMPRESSION: Biophysical profile score: 8 out of 8
--- NOTE | 2025-09-06 16:42 | DVHDS2 ---
Discharge Summary Date of Admission Sep 06, 2025 at 08:10 Date of Discharge: Sep 06, 2025 Admitting Diagnosis Thirty-four week GDM A2 Wounds: None Labs/Diagnostic Data: None Brief Hx & Hospital Course: NST BPP performed both reassuring Consults/Reason for consult GDM A2 Operations or Procedures NST BPP performed both reassuring Condition at Discharge: Good Final Diagnosis/Problems List 34 week GDM A2 Discharge Disposition: Home Discharge Instruct/Medications Diet: Regular, Consistent carbohydrate Activity: Light activity (Pelvic rest kick counts labor precautions carbohydrate precautions) Follow Up/Referral: As scheduled for routine NST BPP she has Scheduled Vit W/ Ferrous Fumara ( One Daily), 1 TAB PO DAILY, (Reported) Miscellaneous Medications Metformin HCl (Metformin Hydrochloride), 500 MG PO, (Reported) Discharge Statement: "Patient was advised to return to the ER or call 911 if any headaches, dizziness , shortness of breath, chest pain, abdominal pain, bleeding, fevers, or worsening of medical condition. Patient was counseled about treatment plan, medications, possible side effects, patientverbalized understanding. All questions were answered to the best of my ability. This discharge took greater then 30 minutes in planning, reviewing documentation, counseling the patient, and discussing with other team members." ASSESSMENT ASSESSMENT Assessment Visit Coding OBGYN Date of Service: Sep 06, 2025 Billing Provider: OLIVER ORO DO NEUROLOGY TEACHER Common Visit Codes: 52799-JKS/OBS SAME DATE (LOW), 18857-NPD/OBS SAME DATE (MOD), 71284-LSS/OBS SAME DATE (HIGH) NEUROLOGY TEACHER Procedure Codes: 90930-78- NON-STRESS TEST OLIVER ORO DO Sep 06, 2025 16:42
== END 2025-09-06 09:40 | disposition home or self-care (01) ==
LOC: LDRP 08:10
PROVIDERS: ADMIT Obstetrics & Gynecology; ATTEND Obstetrics & Gynecology
DX: O24.419 Gestational diabetes mellitus in pregnancy, unspecified control (principal); Z3A.34 34 weeks gestation of pregnancy; Z98.890 Other specified postprocedural states
CPT/HCPCS: 76818; 81002; 82948; 94760; G0378; 59025; 76819

== ENCOUNTER 2025-09-08 19:59 | Observation (INO) | payer BC ==
--- NOTE | 2025-09-08 21:19 | DVH ---
EXAM: US BIOPHYSICAL PROFILE HISTORY: GDMA2/ contractions COMPARISON: US BIOPHYSICAL PROFILE on DOS: 09/06/25 TECHNIQUE: Transabdominal and endovaginal real time montoya scale, color, and doppler evaluation. Perman ent images are maintained in the patient record. FINDINGS: Normal biophysical profile score 8/8. Cervix measures 3.2 cm. heart rate 142 beats per minute . Cephalic position. Amniotic fluid index 6.9 cm. Fundal placenta location. Cervix appears close d measuring 3.2 cm. Borderline low amniotic fluid index measuring 6.9 cm. IMPRESSION: 1. Normal biophysical profile score 2. Cephalic presentation. 3. Fundal placenta location.
--- NOTE | 2025-09-09 06:09 | DVHDS2 ---
Discharge Summary Date of Admission Sep 08, 2025 at 19:59 Date of Discharge: Sep 08, 2025 Admitting Diagnosis Thirty-four week rule out labor pelvic pain no evidence of labor after admission NST performed reassuring Wounds: None Labs/Diagnostic Data: Laboratory Results Test 09/08/25 20:21 POC Glucose 116 mg/dl (70-106) Brief Hx & Hospital Course: Pelvic exam and NST performed with no evidence of labor and/or SROM Consults/Reason for consult None Operations or Procedures NST Condition at Discharge: Good Final Diagnosis/Problems List 34 week pelvic pain no sign of labor Discharge Disposition: Home Discharge Instruct/Medications Diet: Regular Diet comment: Kick counts labor precautions Activity: No Restrictions, As Tolerated Follow Up/Referral: As scheduled Scheduled Vit W/ Ferrous Fumara ( One Daily), 1 TAB PO DAILY, (Reported) Miscellaneous Medications Metformin HCl (Metformin Hydrochloride), 500 MG PO, (Reported) Discharge Statement: "Patient was advised to return to the ER or call 911 if any headaches, dizziness, shortness of breath, chest pain, abdominal pain, bleeding, fevers, or worsening of medical condition. Patient was counseled about treatment plan, medications, possible side effects, patientverbalized understanding. All questions were answered to the best of my ability. This discharge took greater then 30 minutes in planning, reviewing document ation, counseling the patient, and discussing with other team members." ASSESSMENT ASSESSMENT Assessment Visit Coding OBGYN Date of Service: Sep 08, 2025 Billing Provider: OLIVER ORO DO REGISTERED NURSE CARDIAC Common Visit Codes: 99702-UQB/OBS SAME DATE (LOW), 49749-SDN/OBS SAME DATE (MOD), 50260-IMK/OBS SAME DATE (HIGH) REGISTERED NURSE CARDIAC Procedure Codes: 27396-60- NON-STRESS TEST OLIVER ORO DO Sep 09, 2025 06:09
== END 2025-09-08 21:04 | disposition home or self-care (01) ==
LOC: LDRP 19:59
PROVIDERS: ADMIT Obstetrics & Gynecology; ATTEND Obstetrics & Gynecology
DX: O62.9 Abnormality of forces of labor, unspecified (principal); Z3A.34 34 weeks gestation of pregnancy; Z98.890 Other specified postprocedural states; Z79.899 Other long term (current) drug therapy
CPT/HCPCS: 76818; 81002; 82948; 82962; G0378; 59025; 76819

== ENCOUNTER 2025-09-13 04:14 | Observation (INO) | payer BC ==
--- NOTE | 2025-09-13 05:36 | DVHDS2 ---
Physician Discharge Progress N Final Diagnosis: with IUP at 35w4d NST/BPP Not in labor Operations or Procedures: Operations or Procedures SUBJECTIVE Honey Johnson is a 30 yo with IUP at 35w4d presenting to the Place for r/o labor Patient states that she woke up at 0200 feeling crampy. She started timing the contractions and was getting that they were 5-7 minutes apart. She also got up and had a loose bowel movement. Denies leaking fluid, denies vaginal bleeding, and endorses positive movement. Denies changes in vaginal discharge, vaginal itching, or pelvic pain. Denies dysuria, hematuria, or urinary frequency/urgency. She was scheduled for testing for NST/BPP for GDMA2 this AM at 0800 PNC: good, with Dr Burks EDC: 10/14/25 OB Hx: x 2. Prior @ 35w5d. Second delivery at 39 weeks Review of Systems: Neuro: No complaints Heart: No complaints Lungs: No complaints GI: Cramping and diarrhea : No complaints Skin: No complaints Extremities: No complaints OBJECTIVE VSS FHR: Baseline: 135 Variability: Moderate Accelerations: Present Decelerations: Absent Category: 1 UCs: occasional. adjusted toco multiple times Neuro: A&O x4. No apparent distress. Affect appropriate Heart: Regular rate and rhythm Lungs: Clear bilaterally GI: Gravid. No tenderness : SVE discussed and performed with consent. Cervix closed. Skin: Dry and intact. No rashes or lesions Extremities: Cap refill WNL. BPP: 8/8. See report Cervical Length: 3.5 cm/ AUDI: 6cm. See report ASSESSMENT 30 yo with IUP at 35w4d Not in labor Category 1 Tracing PLAN -PO hydrated patient. States the cramping feels much better -Reviewed gestational diabetic diet and importance of maintaining stable blood glucose levels -Discussed labor precautions and kick counts. Answered all patient questions and concerns. Patient verbalizes understanding. -Continue with regularly scheduled appointments. Next appt Monday, 09/15. Will repeat AUDI at that time Other Interventions Other Interventions ORDERING PHYSICIAN: ANIL WOMACK CNM PROCEDURE(s): BPP - BIOPHYSICAL PROFILE REASON: labor/ GDMA2 ORDER NUMBER(s): [id number], ACCESSION NUMBER(s): [id number] BIOPHYSICAL PROFILE HISTORY: labor/ GDMA2 TECHNIQUE: Multiple transabdominal real-time grayscale sonographic images through the gravid uterus of the fetus with duplex Doppler color flow and M-mode spectral analysis FINDINGS: BIOPHYSICAL PROFILE: breathing score: 2 movement score: 2 tone score: 2 Quantitative AUDI score: 2 (AUDI: 6.0 cm; MVP : 3.7 cm ) Total score: 8/8 The cervix is closed and measures 3.5 cm in length. Single live fetus in cephalic presentation. heart rate 144 beats per minute. No placental previa or abruption Single live fetus at 35 weeks 4 days Biophysical profile score 8/8 corresponding to an MELVIN of 10/14/2025 IMPRESSION: 1. Biophysical profile score: 8/ Condition on Discharge: Good Disposition: Home Discharge Instructions: Diet: Consistent carbohydrate Activity: No Restrictions, As Tolerated Medications: No change. Follow Up Care: Discharge Statement: "Patient was advised to return to the ER or call 911 if any headaches, dizziness, shortness of breath, chest pain, abdominal pain, bleeding, fevers, or worsening of medical condition. Patient was counseled about treatment plan, medications, possible side effects, patientverbalized understanding. All questions were answered to the best of my ability. This discharge took greater then 30 minutes in planning, reviewing documentati on, counseling the patient, and discussing with other team members." Visit Coding OBGYN Date of Service: Sep 13, 2025 Billing Provider: ANIL WOMACK CNM HEAD MEN'S GOLF COACH Common Visit Codes: [id number] INP/OBS CARE(HIGH) HEAD MEN'S GOLF COACH Procedure Codes: 72436-55- NON-STRESS TEST ANIL WOMACK CNM Sep 13, 2025 05:36
--- NOTE | 2025-09-13 06:16 | DVH ---
BIOPHYSICAL PROFILE HISTORY: labor/ GDMA2 TECHNIQUE: Multiple transabdominal real-time grayscale sonographic images through the gravid uterus of the fetus with duplex Doppler color flow and M-mode spectral analysis FINDINGS: BIOPHYSICAL PROFILE: breathing score: 2 movement score: 2 tone score: 2 Quantitative AUDI score: 2 (AUDI: 6.0 cm; MVP : 3.7 cm ) Total score: 8/8 The cervix is closed and measures 3.5 cm in length. Single live fetus in cephalic presentation. heart rate 144 beats per minute. No placental previa or abruption Single live fetus at 35 weeks 4 days Biophysical profile score 8/8 corresponding to an MELVIN of 10/14/2025 IMPRESSION: 1. Biophysical profile score: 8/
== END 2025-09-13 06:46 | disposition home or self-care (01) ==
LOC: LDRP 04:14
PROVIDERS: ADMIT Obstetrics & Gynecology; ATTEND Obstetrics & Gynecology
DX: O62.9 Abnormality of forces of labor, unspecified (principal); O24.419 Gestational diabetes mellitus in pregnancy, unspecified control; Z3A.35 35 weeks gestation of pregnancy; Z79.899 Other long term (current) drug therapy
CPT/HCPCS: 76818; 81002; 82948; 82962; 94760; G0378; 59025; 76819

== ENCOUNTER 2025-09-15 14:06 | Observation (INO) | payer BC ==
--- NOTE | 2025-09-15 15:11 | DVH ---
BIOPHYSICAL PROFILE HISTORY: GDMA2 TECHNIQUE: Multiple transabdominal real-time grayscale sonographic images through the gravid uterus o f the fetus with duplex doppler color flow and M-mode spectral analysis FINDINGS: BIOPHYSICAL PROFILE: breathing score: 2 movement score: 2 tone score: 2 Quantitative AUDI score: 2 (AUDI: 9.2 cm.) Total score: 8/8 Single live fetus in cephalic presentation. heart rate 134 beats per minute. Grade 3 posterior placenta without previa or abruption Biophysical profile score 8/8 corresponding to an MELVIN of 10/14/25 IMPRESSION: Biophysical profile score: 8/8
== END 2025-09-15 15:11 | disposition home or self-care (01) ==
LOC: LDRP 14:06 → UNDOADMOB 14:06 → LDRP 14:14
PROVIDERS: ADMIT Obstetrics & Gynecology; ATTEND Obstetrics & Gynecology
DX: O24.419 Gestational diabetes mellitus in pregnancy, unspecified control (principal); Z3A.35 35 weeks gestation of pregnancy; Z98.890 Other specified postprocedural states
CPT/HCPCS: 76818; 81002; 82948; 82962; 94760; G0378; 76819

== ENCOUNTER 2025-09-18 06:50 | Observation (INO) | payer BC ==
[~2025-09-18] VITALS: Ht 162.6 cm; Wt 80.3 kg
--- NOTE | 2025-09-18 21:01 | DVH ---
BIOPHYSICAL PROFILE HISTORY: gdma2 TECHNIQUE: Multiple transabdominal real-time grayscale sonographic images through the gravid uterus of the fetus with duplex Doppler color flow and M-mode spectral analysis FINDINGS: BIOPHYSICAL PROFILE: breathing score: 2 movement score: 2 tone score: 2 Quantitative AUDI score: 2 (AUDI: 7.7 cm, MVP: 2.3 cm.) Total score: 8/8 The cervix obscured by head Single live fetus in vertex presentation. heart rate 135 beats per minute. Posterior Grade 3 placenta without previa or abruption Single live fetus at 36 weeks 2 days Biophysical profile score 8/8 corresponding to an MELVIN of 10/14/2025 IMPRESSION: 1. Biophysical profile score: 8/8 2. FHR: 135 beats per minute
--- NOTE | 2025-09-19 11:26 | DVHDS2 ---
Physician Discharge Progress N Final Diagnosis: IUP at 36w2d testing for GDMA2 Problems List: (1) 36 weeks gestation of (2) GDM, class A2 Operations or Procedures: Operations or Procedures SUBJECTIVE Honey Johnson is a 30 yo with IUP at 36w2d presenting for scheduled NST/BPP for GDMA2 Patient denies feeling UCs, denies leaking fluid, and denies vaginal bleeding. States positive movement. Does not have any concerns at this time EDC: 10/14/25 Ob Hx: x2, prior Med Hx: denies Surg Hx: denies Review of Systems: Neuro: No complaints Heart: No complaints Lungs: No complaints GI: No complaints : No complaints Skin: No complaints Extremities: No complaints OBJECTIVE VSS. See CPN FHR Tracing Baseline: 130 Variability: Moderate Accelerations: present Decelerations: absent CATEGORY 1 UCs: none noted Neuro: A&O x4. No apparent distress. Affect appropriate Heart: Regular rate and rhythm Lungs: Clear bilaterally GI: Gravid. No tenderness Skin: Dry and intact. No rashes or lesions bedside blood glucose: 124 (ate 1.5 hours ago) BPP: 06/27 ASSESSMENT with IUP at 36w2d testing GDM A2 PLAN -Continue with regularly scheduled testing twice weekly. Next appt on Monday, 09/22 -Encouraged patient to continue with adequately balanced carb consistent diet for GDM. Encouraged hydration and balancing activity with rest -Discussed labor precautions and kick counts. All questions answered and patient verbalizes understanding Condition on Discharge: Good Disposition: Home Discharge Instructions: Diet: Consistent carbohydrate Activity: No Restrictions, As Tolerated Medications: No change. See med list Follow Up Care: Specialist: -Next NST/BPP on Saturday 09/22 Discharge Statement: "Patient was advised to return to the ER or call 911 if any headaches, dizziness, shortness of breath, chest pain, abdominal pain, bleeding, fevers, or worsening of medical condition. Patient was counseled about treatment plan, medications, possible side effects, patientverbalized understanding. All questions were answered to the best of my ability. This discharge took greater then 30 minutes in planning, reviewing documentation, counseling the patient, and discussing with other team members." Visit Coding OBGYN Date of Service: Sep 18, 2025 Billing Provider: ANIL WOMACK CNM TAIL END RIDER Common Visit Codes: [id number] INP/OBS CARE (MOD) TAIL END RIDER Procedure Codes: 23136-26- NON-STRESS TEST ANIL WOMACK CNM Sep 18, 2025 20:59
== END 2025-09-18 21:09 | disposition home or self-care (01) ==
LOC: LDRP 19:54
PROVIDERS: ADMIT Obstetrics & Gynecology; ATTEND Obstetrics & Gynecology
DX: O24.419 Gestational diabetes mellitus in pregnancy, unspecified control (principal); O09.213 Supervision of pregnancy with history of pre-term labor, third trimester; Z3A.36 36 weeks gestation of pregnancy; Z98.890 Other specified postprocedural states; Z79.899 Other long term (current) drug therapy
CPT/HCPCS: 76818; 81002; 82948; 82962; 94760; G0378; 59025; 76819

== ENCOUNTER 2025-09-22 06:25 | Observation (INO) | payer BC ==
--- NOTE | 2025-09-22 10:23 | DVH ---
BIOPHYSICAL PROFILE HISTORY: GDMA1 TECHNIQUE: Multiple transabdominal real-time grayscale sonographic images through the gravid uterus of the fetus with duplex Doppler color flow and M-mode spectral analysis FINDINGS: BIOPHYSICAL PROFILE: breathing score: 2 movement score: 2 tone score: 2 Quantitative AUDI score: 2 (AUDI: 6.7 Cm.) Total score: 8 The cervix not well visualized Single live fetus in cephalic presentation. heart rate 132 beats per minute. Grade 3 posterior placenta without previa or abruption IMPRESSION: Biophysical profile score: 8
--- NOTE | 2025-09-22 23:04 | DVHDS2 ---
Discharge Summary Date of Admission Sep 22, 2025 at 09:14 Date of Discharge: Sep 22, 2025 Admitting Diagnosis Thirty-six weeks GDM A2 low amniotic fluid index Labs/Diagnostic Data: Laboratory Results Test 09/22/25 11:15 POC Glucose 85 mg/dl (70-106) Brief Hx & Hospital Course: GDM A2 low AUDI Consults/Reason for consult None Operations or Procedures BPP AUDI performed reassuring Condition at Discharge: Good Final Diagnosis/Problems List 36+ week GDM A2 low AUDI Discharge Disposition: Home Discharge Instruct/Medications Diet: Consistent carbohydrate Activity: No Restrictions, As Tolerated Follow Up/Referral: Weekly NST AUDI Scheduled Vit W/ Ferrous Fumara ( One Daily), 1 TAB PO DAILY, (Reported) Miscellaneous Medications Metformin HCl (Metformin Hydrochloride), 500 MG PO, (Reported) Discharge Statement: "Patient was advised to return to the ER or call 911 if any headaches, dizziness, shortness of breath, chest pain, abdominal pain, bleeding, fevers, or worsening of medical condition. Patient was counseled about treatment plan, medications, possible side effects, patientverbalized understanding. All questions were answered to the best of my ability. This discharge took greater then 30 minutes in planning, reviewing documentation, counseling the patient, and discussing with other team members." ASSESSMENT ASSESSMENT Assessment Visit Coding OBGYN Date of Service: Sep 22, 2025 Billing Provider: OLIVER ORO DO ELECTRONIC BENCH TECHNICIAN Common Visit Codes: [id number] INP/OBS CARE(HIGH), 80771-CPR/OBS SAME DATE (LOW), 33042-IIH/OBS SAME DATE (MOD) ELECTRONIC BENCH TECHNICIAN Procedure Codes: 68038-50- NON-STRESS TEST OLIVER ORO DO Sep 22, 2025 23:04
== END 2025-09-22 12:20 | disposition home or self-care (01) ==
LOC: UNDOADMOB 09:05 → LDRP 09:05 → UNDODISOB 12:20
PROVIDERS: ADMIT Obstetrics & Gynecology; ATTEND Obstetrics & Gynecology
DX: O24.419 Gestational diabetes mellitus in pregnancy, unspecified control (principal); O42.913 Preterm premature rupture of membranes, unspecified as to length of time between rupture and onset of labor, third trimester; Z3A.36 36 weeks gestation of pregnancy; Z98.890 Other specified postprocedural states
CPT/HCPCS: 76818; 81002; 82948; 82962; 96360; 96361; G0378; 59025; 76819

== ENCOUNTER 2025-09-23 07:02 | Observation (INO) | payer BC ==
--- NOTE | 2025-09-24 18:11 | DVH ---
BIOPHYSICAL PROFILE HISTORY: low AUDI TECHNIQUE: Multiple real-time grayscale sonographic images through the gravid uterus of the fetus with duplex Doppler color flow. FINDINGS: BIOPHYSICAL PROFILE: breathing score: 2 movement score: 2 tone score: 2 Quantitative AUDI score: 2 Total score: 8 out of 8 heart rate of 148 beats per minute. Placenta is posteriorly positioned. AUDI 8.7 cm. lie is cephalic. IMPRESSION: Biophysical profile score: 8 out of 8
--- NOTE | 2025-09-26 14:44 | DVHDS2 ---
Physician Discharge Progress N Final Diagnosis: gdm 38wks Operations or Procedures: Operations or Procedures nst reactive reviwed,sono Condition on Discharge: Good Disposition: Home Discharge Instructions: Diet: Consistent carbohydrate Activity: No Restrictions, As Tolerated Medications: na Follow Up Care: Specialist: 2d Discharge Statement: "Patient was advised to return to the ER or call 911 if any headaches, dizziness, shortness of breath, chest pain, abdominal pain, bleeding, fevers, or worsening of medical condition. Patient was counseled about treatment plan, medications, possible side effects, patientverbalized understanding. All questions were answered to the best of my ability. This discharge took greater then 30 minutes in planning, reviewing documentation, counseling the patient, and discussing with other team members." Visit Coding OBGYN Date of Service: Sep 25, 2025 Billing Provider: JORDY AVALOS DO HAND EXPANSION ENVELOPE MAKER Common Visit Codes: 55970-[id number] OBS CARE (HIGH) HAND EXPANSION ENVELOPE MAKER Procedure Codes: 62669-89- NON-STRESS TEST JORDY AVALOS DO Sep 26, 2025 14:44
== END 2025-09-24 18:38 | disposition home or self-care (01) ==
LOC: LDRP 09-24 17:10
PROVIDERS: ADMIT Obstetrics & Gynecology; ATTEND Obstetrics & Gynecology
DX: O42.913 Preterm premature rupture of membranes, unspecified as to length of time between rupture and onset of labor, third trimester (principal); O24.419 Gestational diabetes mellitus in pregnancy, unspecified control; Z3A.37 37 weeks gestation of pregnancy; Z98.890 Other specified postprocedural states
CPT/HCPCS: 76818; 81002; 82948; 82962; 94760; G0378; 59025; 76819

== ENCOUNTER 2025-09-26 05:18 | Observation (INO) | payer BC ==
[~2025-09-26] VITALS: Ht 162.6 cm; Wt 65.8 kg
--- NOTE | 2025-09-27 09:30 | DVH ---
CLINICAL HISTORY: Low amniotic fluid index. COMPARISON: US BIOPHYSICAL PROFILE on DOS: 09/24/25, US BIOPHYSICAL PROFILE on DOS: 09/22/25, US BIOPHYSICAL PROFILE on DOS: 09/18/25 TECHNIQUE: biophysical profile was performed. Transabdominal sonographic images of the fetus were obtained. FINDINGS: The fetus is in cephalic position. heart rate measures 123 BPM. Amniotic fluid index measures 6.6 cm. MVP measures 2.5 cm. The placenta is posterior in position. Grade 3 placenta with no visualized evidence of previa or abruption at this time. BPP profile is an overall score of 8/8, with 2/2 points for breathing, with at least one episode of breathing over a 30 second duration during a 30 minute observation, 2/2 points for movements, with 3 or more discrete body or limb movements, 2/2 points for tone, with one or more episodes of extremity extension with return to flexion, or opening and closing of hand, and 2/2 points for amniotic fluid, with at least 1 pocket of amniotic fluid that measures 2 cm in 2 perpendicular planes. IMPRESSION: 1. BPP score of 8/8. 2. Amniotic fluid index measures 6.6 cm with MVP of 2.5 cm.
[2025-09-27] MEDS: LACTATED RINGER'S 1,000 ML IV ONE (09:43)
--- NOTE | 2025-09-27 13:28 | DVH ---
BIOPHYSICAL PROFILE HISTORY: AUDI recheck s/p IV bolus TECHNIQUE: Multiple transabdominal real-time grayscale sonographic images through the gravid uterus of the fetus with duplex Doppler color flow and M-mode spectral analysis FINDINGS: BIOPHYSICAL PROFILE: Biophysical profile 09/27/2025 9:01 a.m. 06/27. presentation cephalic FHR:156 bpm AUDI: 8.36 CM ; MVP: 3.9 cm AUDI results from 09/27/2025 at 9:00 a.m. AUDI: 6.6; MVP: 2.5 CM IMPRESSION: 1. Biophysical profile score: 8/8 2. AUDI: CURRENTLY 8.36 CM; MVP: 3.9 CM at 0900 am today AUDI= 6.6 cm; MVP: 2.5 cm. 3. FHR: 156
--- NOTE | 2025-09-30 17:01 | DVHDS2 ---
Physician Discharge Progress N Final Diagnosis: gdma2 37wks Operations or Procedures: Operations or Procedures nst reactive reviwed,sono Condition on Discharge: Good Disposition: Home Discharge Instructions: Diet: Regular Activity: No Restrictions, As Tolerated Medications: na Follow Up Care: Specialist: 3d Discharge Statement: "Patient was advised to return to the ER or call 911 if any headaches, dizziness, shortness of breath, chest pain, abdominal pain, bleeding, fevers, or worsening of medical condition. Patient was counseled about treatment plan, medications, possible side effects, patientverbalized understanding. All questions were answered to the best of my ability. This discharge took greater then 30 minutes in planning, reviewing document ation, counseling the patient, and discussing with other team members." Visit Coding OBGYN Date of Service: Sep 27, 2025 Billing Provider: JORDY AVALOS DO TITLE INSURANCE AGENT Common Visit Codes: [id number] OBS CARE (HIGH) TITLE INSURANCE AGENT Procedure Codes: 18052-93- NON-STRESS TEST JORDY AVALOS DO Sep 30, 2025 17:01
== END 2025-09-27 13:08 | disposition home or self-care (01) ==
LOC: LDRP 09-27 08:13
PROVIDERS: ADMIT Obstetrics & Gynecology; ATTEND Obstetrics & Gynecology
DX: O24.419 Gestational diabetes mellitus in pregnancy, unspecified control (principal); Z3A.37 37 weeks gestation of pregnancy; Z98.890 Other specified postprocedural states
CPT/HCPCS: 76815; 76818; 81002; 82948; 82962; 94760; G0378; 59025; 76819

== ENCOUNTER 2025-09-28 05:47 | Observation (INO) | payer BC ==
[~2025-09-28] VITALS: Ht 160 cm; Wt 81.6 kg
--- NOTE | 2025-09-28 08:54 | DVH ---
BIOPHYSICAL PROFILE HISTORY: Low AUDI Comparison Study: US OBSTERICAL LIMITED on DOS: 09/27/25, US BIOPHYSICAL PROFILE on DOS: 09/27/25, US BIOPHYSICAL PROFILE on DOS: 09/24/25, US BIOPHYSICAL PROFILE on DOS: 09/22/25, US BIOPHYSICAL PROFILE on DOS: 09/18/25 TECHNIQUE: Multiple real-time grayscale sonographic images through the gravid uterus of the fetus with duplex Doppler color flow and M-mode spectral analysis Findings/impression: Single intrauterine with visualized heart rate. No placenta previa or abruption at this time. Cephalic presentation. Posterior placenta, grade 3. heart rate is 122 beats per minute. AUDI measures 6.1 cm. Previous AUDI 8.3 cm.
== END 2025-09-28 09:43 | disposition home or self-care (01) ==
LOC: LDRP 08:12
PROVIDERS: ADMIT Obstetrics & Gynecology; ATTEND Obstetrics & Gynecology
DX: O24.419 Gestational diabetes mellitus in pregnancy, unspecified control (principal); O42.913 Preterm premature rupture of membranes, unspecified as to length of time between rupture and onset of labor, third trimester; Z3A.37 37 weeks gestation of pregnancy; Z98.890 Other specified postprocedural states
CPT/HCPCS: 59025; 76815; 81002; 82948; 82962; 94760; G0378

== ENCOUNTER 2025-09-28 22:09 | Inpatient (IN) | payer BC ==
[~2025-09-28] VITALS: Ht 162.6 cm; Wt 81.6 kg
[2025-09-28] MEDS ORDERED: PENICILLIN G POT 5MIL/D5 50ML 50 ML IV ONE (22:30)
[2025-09-28 23:01] LABS: Hematocrit 32.3 % (36.0-46.0); Hemoglobin 11.1 g/dL (12.2-16.2); Mean Corpuscular Hemoglobin 29.1 pg (28.0-32.0); Mean Corpuscular Volume 84.7 fL (80.0-100.0); Nucleated Red Blood Cells % 0.1 %
[2025-09-28 23:06] LABS: Urine Protein, UAD Negative (Negative)
[2025-09-28 23:18] LABS: Amphetamine Screen, Urine Neg (NEGATIVE); Benzodiazephine Screen, Urine Neg (NEGATIVE)
[2025-09-28 23:18] LABS: Alanine Aminotransferase 13 U/L (7-40); Albumin 4.1 g/dL (3.2-4.8); Anion Gap 11 (5-15); BUN/Creatinine Ratio 13.6 (10.0-20.0); Calcium 9.3 mg/dL (8.7-10.4); Carbon Dioxide 21 mmol/L (20-31); Glucose 90 mg/dL (74-106); Potassium 3.7 mmol/L (3.5-5.1); Sodium 139 mmol/L (136-145); Total Protein 6.8 g/dL (5.7-8.2); Uric Acid 5.0 mg/dL (3.1-7.8)
[2025-09-28 23:19] LABS: Barbiturate Scree,Urine Neg (NEGATIVE); Cannabinoid Screen, Urine Neg (NEGATIVE); Cocaine Screen, Urine Neg (NEGATIVE); Opiate Scree,Urine Neg (NEGATIVE); Phencyclidine Screen, Urine Neg (NEGATIVE)
[2025-09-28 23:19] LABS: Alkaline Phosphatase 186 U/L (46-116); Bilirubin, Total 0.6 mg/dL (0.2-1.0); Blood Urea Nitrogen 6 mg/dL (9-23); Chloride 107 mmol/L (98-107)
--- NOTE | 2025-09-29 00:14 | DVHHP2 ---
OB CC & HPI Date Date of Admission: Sep 28, 2025 Patient Identification: : 4 Para: 2 EDC: Oct 14, 2025 Chief Complaints: Reason for admission: induction of labor Indication for induction: medical complication Other reason for admission: Gestational Diabetes in A2 Insulin dependant Decreased Amniotic fluid Admission Nurse Assessment Rev: Yes History of Present Complaints L&D Admission Note 09/28/2025 Subjective 30 y/o (1,1,1,2) @37w5d EGClaudette presents to the Place for scheduled IOL for GDM A1/ Decreased Amniotic fluid level Reports normal movements, no leakage of fluid or vaginal bleeding. Received care with Dr Burks LMP: 01/07/2025 EDC: 10/14/[address] Burks labs: Blood Type: O positive GBS: Negative RPR: non reactive Problems in : GDM A2/ Oligohydramnios Past History OB: X1/ PTD/ GDM A2/ SAB G#1 03/2021 36w0d / PTD G#2 11/2022 39w0d / GDM A2 G#3- Current Contact Lens Flashing Puncher PMH : GDM A2 PSH: Denies Medications: PNV, Social Hist: denies Objective PE:A&O x3, Well groomed Afebrile, VSS Heart & Lungs: Normal sound Abdomen: Gravid non- tender, fundal ht: SVE: CX 1/thick/High / Cephalic presentation Assessment 30y/o (1,1,1,2) 37w5d IUP Induction of labor FHR baseline 145 bpm, mod variability , Accelerations present, no deceleration; Category 1 tracing Contractions: Uterine irritability noted Plan: Admit IOL for GDM/Oligo Misoprostol 50 mcg oral per protocol Epidural for pain management PRN Plan of care discussed with patient and partner Process, Risks, benefits, of available management options discussed,, Internal monitoring of UCs & FHT, AROM, amnioinfusion etc only when indicated Patient agrees Informed Consent obtained Consent for possible blood transfusion obtained. All questions answered. Admit to Place IOL Routine L&D Admission orders EFM per policy Encourage ambulation and/exercises / frequent position change to facilitate labor & descent Supportive care Anticipate Past Medical History Cardiac: No pertinent Hx Pulmonary: No pertinent Hx Central Nervous System: No pertinent Hx GI: No pertinent Hx Hemotology/Oncology: No pertinent Hx Hepatobiliary: No pertinent Hx Psychiatric: No pertinent Hx Musculoskeletal: No pertinent Hx Rheumotologic: No pertinent Hx Infectious Disease: No peritnent Hx ENT: No pertinent Hx Renal/: No pertinent Hx Endocrine: Other Dermatology: No pertinent Hx Past Surgical History: No pertinent Hx OB History OB History Care: Good Care Ultrasounds: Normal mid trimester US Abnormal Ultrasound Findings: Decreased Amniotic fluid Obstetrical Complications: Gestational Diabetes Medical Complications: None Allergies: Coded Allergies: NO KNOWN ALLERGIES (Unverified , 11/12/22) Home Meds Reported Medications Metformin HCl (Metformin Hydrochloride) 500 Mg/5 Ml Cinthia, 500 MG PO, ML 10/20/22 Vit W/ Ferrous Fumara ( One Daily) Daily Tab, 1 TAB PO DAILY, #90 TAB 3 Refills 10/20/22 Current Medications Current Medications Medications (Trade) Dose Ordered Sig/Joshua Route PRN Reason Start Time Stop Time Status Last Admin Lactated Ringer's 1,000 ml @ 125 mls/hr Q8H IV 09/28/25 22:30 Nalbuphine HCl (Nubain) 10 mg Q4HP PRN IV MODERATE PAIN (4-6 PAIN SCALE) 09/28/25 22:30 Penicillin G Potassium [id number] units/Dextrose 50 ml @ 100 mls/hr Q4H IV 09/29/25 02:30 09/28/25 23:11 DC Yana Hancock (Tucks) 1 pad PRN PRN TOP PERINEAL AREA DISCOMFORT 09/28/25 22:30 Sodium Lauryl Sulfate (Phisoderm) 240 ml PRN PRN TOP PERINEAL AREA DISCOMFORT 09/28/25 22:30 Benzocaine (Dermoplast) 1 applic PRN PRN TOP PERINEAL AREA DISCOMFORT 09/28/25 22:30 Misoprostol (Cytotec) 50 mcg Q4HPRN PRN PO CERVICAL RIPENING 09/28/25 22:30 Lidocaine HCl (Xylocaine) 20 ml ONCE PRN IJ PERINEAL AREA DISCOMFORT 09/28/25 22:30 Family & Social History Family/Social History Blood Type: O+ Rubella: immune RPR/VDRL: Negative GBS Status: Negative HBsAG: Negative Review of Systems Constitutional: No symptom reported Ears, Nose, & Throat: No symptom reported Eyes: No symptom reported Pulmonary/Respiratory: No symptom reported Cardiovascular: No symptom reported Gastrointestinal: No symptom reported Genitourinary: No symptom reported Musculoskeletal: No symptom reported Skin: No symptom reported Psychiatric: No symptom reported Endocrine: No symptom reported Hemotologic/Lymphatic: No symptom reported OB Admission Exam Physical Exam HEENT: NCAT Heart: Rhythm Normal Lungs: Clear Abdomen: Gravid Extremities: Normal Reflexes: Normal Cervical Dilatation: 1cm Effacement: 25% Station: Ballotable Membranes: Intact Heart Rate: 140's Accelerations: Accelerations Present Short Term Variability: Present Halfway Variability: Average (6-25) Contractions on Admission: None Intensity: Mild OB Plan Plan Admitting Diagnosis: induction of labor Plan: Induction Induction Methd: Misoprostol protocol Visit Coding OBGYN Date of Service: Sep 29, 2025 Billing Provider: SVETA ALVAREZ CNM AIRLINE MECHANIC Common Visit Codes: [id number] INP/OBS CARE (LOW), [id number] INP/OBS CARE (MOD) SVETA ALVAREZMNov 2024 00:14
[2025-09-29 00:42] LABS: INR 0.93 (0.9-1.15); Partial Thromboplastin Time 27.0 SEC (24.5-34.5); Prothrombin Time 9.9 sec (9.3-11.8)
[2025-09-29 00:44] LABS: Fibrinogen 521.0 mg/dL (177-375)
[2025-09-29] MEDS ORDERED: PENICILLIN G POTASSIUM 2,500,000 UNITS in D5W 5% 50 ML IV SCH (02:30)
[2025-09-29] MEDS: NALOXONE HCL 0.4 MG/ML VIAL IV ONE (03:00)
[2025-09-29] MEDS: LACTATED RINGER'S 500 ML IV ONE (03:00)
--- NOTE | 2025-09-29 05:07 | DVHPN2 ---
CNM Labor Progress Note Date and Time Seen Date Seen: Sep 29, 2025 Time Seen: 04:59 Subjective Patient reports: Feels better Subjective Comment Subjective 30 y/o (1,1,1,2) @37w6d AMADEO presents to the Place for scheduled IOL for GDM A1/ Decreased Amniotic fluid level Reports normal movements, no leakage of fluid or vaginal bleeding. Received care with Dr Burks LMP: 01/07/2025 EDC: 10/14/[address] Burks labs: Blood Type: O positive GBS: Negative RPR: non reactive Problems in : GDM A2/ Oligohydramnios Monitoring Method Monitoring Method: External Heart Rate Heart Rate Baseline: 125 Heart Rate Variability: Moderate Presence of FHR Accelerations: Yes Presence of FHR Decelerations: No Changes in Trends of Patterns: No Are all 5 Components of the FH: Yes Contractions Contractions Frequency: Occasional Duration of Contraction: 90 Contractions Intensity: Moderate Contractions Resting Tone: Relaxed Membranes Membranes: Intact Vaginal Exam Vag Exam Deferred: Yes Vaginal Exam Dilation: 1 (1.5) Vaginal Exam Effacement: 25 Vaginal Exam Station: -2 Vaginal Exam Presentation: VTX Vaginal Exam Show: None Medications Medications - Pitocin: No Medication - Epidural: Yes Lab Results Lab Results Current Medications Medications (Trade) Dose Ordered Sig/Joshua Start Time Stop Time Status Last Admin Dose Admin Lactated Ringer's 1,000 ml @ 125 mls/hr Q8H 09/28/25 22:30 Nalbuphine HCl (Nubain) 10 mg Q4HP PRN 09/28/25 22:30 Penicillin G Potassium 50 ml @ 100 mls/hr ONCE ONCE 09/28/25 22:30 09/28/25 23:11 DC Penicillin G Potassium [id number] units/Dextrose 50 ml @ 100 mls/hr Q4H 09/29/25 02:30 09/28/25 23:11 DC Witch Karissa (Tucks) 1 pad PRN PRN 09/28/25 22:30 Sodium Lauryl Sulfate (Phisoderm) 240 ml PRN PRN 09/28/25 22:30 Benzocaine (Dermoplast) 1 applic PRN PRN 09/28/25 22:30 Misoprostol (Cytotec) 50 mcg Q4HPRN PRN 09/28/25 22:30 09/28/25 23:58 50 MCG Lidocaine HCl (Xylocaine) 20 ml ONCE PRN 09/28/25 22:30 Naloxone HCl (Narcan) 0.2 mg PRN ONCE 09/29/25 03:00 09/29/25 03:01 DC Ephedrine Sulfate (ePHEDrine SULFATE) 10 mg PRN ONCE 09/29/25 03:00 09/29/25 03:01 DC Lactated Ringer's 500 ml @ 500 mls/hr Q1H ONCE 09/29/25 03:00 09/29/25 03:59 DC Laboratory Tests Test 09/29/25 04:08 09/28/25 22:37 09/28/25 22:30 Range/Units POC Glucose 98 70-106 mg/dl White Blood Count 9.5 4.4-10.8 10^3/uL Red Blood Count 3.82 L 4.0-5.20 10^6/uL Hemoglobin 11.1 L 12.2-16.2 g/dL Hematocrit 32.3 L 36.0-46.0 % Mean Corpuscular Volume 84.7 80.0-100.0 fL Mean Corpuscular Hemoglobin 29.1 28.0-32.0 pg Mean Corpuscular Hemoglobin Concent 34.4 32.0-36.0 g/dL Red Cell Distribution Width 13.7 11.8-14.3 % Platelet Count 256 140-450 10^3/uL Mean Platelet Volume 8.7 6.9-10.8 fL Neutrophils (%) (Auto) 72.2 37.0-80.0 % Lymphocytes (%) (Auto) 19.3 10.0-50.0 % Monocytes (%) (Auto) 6.0 0.0-12.0 % Eosinophils (%) (Auto) 2.2 0.0-7.0 % Basophils (%) (Auto) 0.3 0.0-2.0 % Neutrophils # (Auto) 6.9 1.6-8.6 10 ^3/uL Lymphocytes # (Auto) 1.8 0.4-5.4 10 ^3/uL Monocytes # (Auto) 0.6 0-1.3 10 ^3/uL Eosinophils # (Auto) 0.2 0-0.8 10 ^3/uL Basophils # (Auto) 0 0-0.2 10 ^3/uL Nucleated Red Blood Cells 0.1 % Prothrombin Time 9.9 9.3-11.8 sec Prothrombin Time INR 0.93 0.9-1.15 Activated Partial Thromboplast Time 27.0 24.5-34.5 SEC Fibrinogen 521 H 177-375 mg/dL Sodium Level 139 136-145 mmol/L Potassium Level 3.7 3.5-5.1 mmol/L Chloride Level 107 98-107 mmol/L Carbon Dioxide Level 21 20-31 mmol/L Anion Gap 11 5-15 Blood Urea Nitrogen 6 L 9-23 mg/dL Creatinine 0.44 L 0.550-1.02 mg/dL Glomerular Filtration Rate Calc 135 >90 mL/min BUN/Creatinine Ratio 13.6 10.0-20.0 Serum Glucose 90 74-106 mg/dL Uric Acid 5.0 3.1-7.8 mg/dL Calcium Level 9.3 8.7-10.4 mg/dL Total Bilirubin 0.6 0.2-1.0 mg/dL Aspartate Amino Transferase (AST) 20 13-40 U/L Alanine Aminotransferase (ALT) 13 7-40 U/L Alkaline Phosphatase 186 H 46-116 U/L Total Protein 6.8 5.7-8.2 g/dL Albumin 4.1 3.2-4.8 g/dL Treponema pallidum Antibody Non-reactive Negative Hepatitis B Surface Antigen Negative Negative Hepatitis C Antibody Negative Negative HIV (1&2) Antibody Negative Negative Rubella Antibody Pending Urine Color Light-yellow Yellow Urine Clarity Clear Clear Urine pH 6.0 5.0-9.0 Urine Specific Roe 1.023 1.001-1.035 Urine Protein Negative Negative Urine Ketones Negative Negative Urine Blood Negative Negative /uL Urine Nitrite Negative Negative Urine Bilirubin Negative Negative Urine Urobilinogen Normal Negative mg/dL Urine Leukocyte Esterase Negative Negative /uL Urine RBC 1 0 - 4 /hpf Urine Microscopic WBC 4 0-5 /HPF Urine Squamous Epithelial Cells Few <5 /hpf Urine Bacteria Few H None Seen /hpf Urine Mucus Few None Seen Urine Glucose Normal Normal mg/dL Urine Opiates Screen Neg NEGATIVE Urine Fentanyl Screen Neg NEGATIVE Urine Barbiturates Screen Neg NEGATIVE Urine Phencyclidine Screen Neg NEGATIVE Urine Amphetamines Screen Neg NEGATIVE Urine Benzodiazepines Screen Neg NEGATIVE Urine Cocaine Screen Neg NEGATIVE Urine Cannabinoids Screen Neg NEGATIVE Consulting with Regarding Assessment 30y/o (1,1,1,2) 37w6d IUP Induction of labor for GDM/ Oligo Received Misoprostol X1 dose 50 mcg oral Will receive her second dose @ 0500 Epidural for pain management Clinical judgment from Recreation Director Multigravida and last vaginal delivery two years ago FHR baseline 125 bpm, mod variability , Accelerations present, no deceleration; Category 1 tracing Contractions: every 2-4 min noted Duration: 60-90 second long Plan Plan IOL for GDM/Oligo Misoprostol 50 mcg oral per protocol X2 Epidural given for pain management Currently resting comfortably Plan of care discussed with patient and partner Process, Risks, benefits, of available management options discussed,, Internal monitoring of UCs & FHT, AROM, amnioinfusion etc only when indicated EFM per policy Frequent position change to facilitate labor & descent Supportive care Anticipate Will [facility] Yuri Santiago MD Plan discussed with: Patient Visit Coding OBGYN Date of Service: Sep 29, 2025 Billing Provider: SVETA ALVAREZ CNM RETAIL TIRE SALES MANAGER Common Visit Codes: [id number] OBS CARE (MOD), 63764-[id number] INP/OBS CARE (MOD) SVETA ALVAREZ CNMNov 2024 05:07
[2025-09-29] MEDS: LACT. RINGERS/OXYTOCIN 20UNITS 1,000 ML IV ONE (07:04)
[2025-09-29] MEDS: ROPIVACAINE HCL 100 ML ONE ×5 (09:18→23:14)
[2025-09-29] MEDS: DERMOPLAST 60ML BOTTLE TOP PRN (13:52)
[2025-09-29] MEDS: PHISODERM TOP SOLN 240ML BTL TOP PRN (13:52)
[2025-09-29] MEDS: WITCH HAZEL-GLYCERIN PAD TOP PRN (13:52)
[2025-09-29] MEDS: diphenhydrAMINE HCL 50 MG/1 ML VL IV ONE (23:01)
[2025-09-30] MEDS: LACTATED RINGER'S 1,000 ML IV SCH (00:02)
[2025-09-30] MEDS: LIDOCAINE 2%HCL (LOCAL ANESTH.) INJ 20ML MDV IJ PRN (00:46)
[2025-09-30] MEDS: IBUPROFEN 600 MG TAB PO PRN (02:47)
[2025-09-30 03:16] VITALS: BP 100/58; PULSE 100; RESP 16; TEMP 98; O2SAT 99
--- NOTE | 2025-09-30 05:20 | LDN2 ---
Labor and Delivery Note Date 09/30/25 Age 30 4 Para 2 EDC In one week 38 weeks EGA 2 week 38 weeks Diagnosis induction oligo Vaginal Delivery: VTX Vacuum Assisted: No Placenta: Spontaneous Sex: Male Weight 6lbs 6oz Apgars 8/9 Amniotic Fluid: Clear Anesthesia Epidural Episiotomy: No Extension: No (1st degree posterior tear) Repaired with 2-0 chromic EBL 250cc very little Labs Laboratory Tests 09/28/25 22:37: Hepatitis B Surface Antigen Negative, HIV (1&2) Antibody Negative, Rubella Antibody Positive Blood Bank 09/28/25 22:37: Blood Type O POSITIVE Complications none Conditions stable Cutting Tool Sharpener none present Visit Coding OBGYN Date of Service: Sep 30, 2025 Billing Provider: OLIVER ORO DO AUTOMOBILE BUMPER STRAIGHTENER Common Visit Codes: [id number] INP/OBS CARE(HIGH) AUTOMOBILE BUMPER STRAIGHTENER Procedure Codes: [id number] OB CARE,VAG DELIVERY OLIVER ORO DO Sep 30, 2025 05:20
[2025-09-30] MEDS: LACT. RINGERS/OXYTOCIN 20UNITS 500 ML IV ONE ×2 (05:24)
[2025-09-30] MEDS: NALBUPHINE HCL 10 MG/1ml INJECTION IV PRN (05:26)
[2025-09-30 07:06] VITALS: BP 102/52; PULSE 93; RESP 16; TEMP 97.6; O2SAT 97
[2025-09-30 11:04] VITALS: BP 109/74; PULSE 88; RESP 15; O2SAT 98
[2025-09-30] MEDS: ACETAMINOPHEN 325 MG TAB PO PRN (11:13)
[2025-09-30 14:42] VITALS: BP 103/60; PULSE 82; RESP 18; TEMP 98.2; O2SAT 96
[2025-09-30 18:30] VITALS: BP 115/72; PULSE 99; RESP 16; TEMP 98.5; O2SAT 100
[2025-09-30] MEDS: DOCUSATE SOD 100 MG CAP PO SCH (22:00)
[2025-09-30 23:00] VITALS: BP 144/89; PULSE 95; RESP 16; TEMP 97.8; O2SAT 99
[2025-09-30] MEDS ORDERED: DOCU-265 PO (23:16)
[2025-09-30] MEDS ORDERED: PREN-96 PO (23:16)
[2025-09-30] MEDS ORDERED: IBU600T PO (23:16)
--- NOTE | 2025-10-01 00:24 | DVHPN2 ---
Progress Note Date Seen: Oct 01, 2025 Subjective S: bleeding is less, eating food without issues, denies lightheaded/dizziness, pain well controlled with oral medications, no concerns with urinating, passing flatus, no BM yet, ambulating well, well vital signs Vital Sign Date Time Temp Pulse Resp B/P (MAP) Pulse Ox O2 Delivery O2 Flow Rate FiO2 09/30/25 18:30 98.5 99 16 115/72 (86) 100 98.5 09/30/25 18:30 Room Air Total Intake and Output 09/30/25 09/30/25 10/01/25 15:00 23:00 07:00 Output Total 1100 ml Balance -1100 ml medications Current Medications Medications Dose Ordered Sig/Joshua Route Start Time Stop Time Status Last Admin Dose Admin Yana Karissa 1 pad PRN PRN TOP 09/28/25 22:30 09/29/25 13:52 1 PAD Sodium Lauryl Sulfate 240 ml PRN PRN TOP 09/28/25 22:30 09/29/25 13:52 240 ML Benzocaine 1 applic PRN PRN TOP 09/28/25 22:30 09/29/25 13:52 1 APPLIC Ibuprofen 600 mg Q6HP PRN PO 09/30/25 01:45 09/30/25 22:45 600 MG Acetaminophen 650 mg Q4HP PRN PO 09/30/25 01:45 09/30/25 18:31 650 MG Docusate Sodium 200 mg HS PO 09/30/25 22:00 laboratory and microbiology Laboratory Tests 09/28/25 22:37 Test 09/28/25 22:37 Range/Units Serum Glucose 90 74-106 mg/dL Objective O: VSS Chest: heart sounds normal and lung sounds clear bilaterally Abd: soft, non-tender, fundus 1-U/firm/midline, active bowel sounds, no rebound or guarding Perineum: sutures intact, edges well approximated, no erythema/edema noted Ext: Non-tender, No edema, 2+ BLE DTRs Lochia: minimal See lab results Problems(with codes): (1) (normal spontaneous vaginal delivery) Assessment/Plan A: 30yo now PPD#1 s/p Rh+ Rubella Immune P: D/C home today after pt cleared by tele psych and Social work Rx sent to pharmacy precautions and preeclampsia warning signs reviewed F/U with [facility] office in 2 weeks Plan discussed with: Patient, Spouse Visit Coding OBGYN Date of Service: Oct 01, 2025 Billing Provider: CAITLIN ALEMAN CNM [employer] Common Visit Codes: [id number] INP/OBS CARE(MOD) CAITLIN ALEMAN CNM Oct 01, 2025 00:24
--- NOTE | 2025-10-01 00:26 | DVHDS2 ---
Obstetrics Discharge Summary Obstetrics Discharge Summary Date of Admission: Sep 28, 2025 Date of Discharge: Oct 01, 2025 Reason For Admission: Induction of Labor (GDM, A2) Procedures: NST, Ultrasound, Mgmt of Obstetrics Compli (GDM, A2) Intrapartum Procedures: Spontaneous vaginal deliv Procedures: Hct/date: (10/01/25), Hgb/date: (10/01/25) Operative Complicat: Laceration Discharge Diagnosis: Term -Delivered Discharge Information: Activity (as tolerated, no heavy lifting and nothing in the vagina for 6 weeks), Diet (Routine), Medications (Rx sent), Instructions (Routine), Discharge to (Home), Accompanied by (partner), Discarge date (10/01/25) Visit Coding OBGYN Date of Service: Oct 01, 2025 Billing Provider: CAITLIN ALEMAN CNM MEDICAL SUPERVISOR Common Visit Codes: 98342-SDO/OBS DISCH DAY <30MIN CAITLIN ALEMAN CNM Oct 01, 2025 00:26
[2025-10-01 03:22] VITALS: BP 118/70; PULSE 97; RESP 16; TEMP 98.1; O2SAT 99
--- NOTE | 2025-10-01 03:49 | DVHINCON2 ---
Date of Service if different f: Oct 01, 2025 Time of Service: 03:00 Consult Consult Note PSYCHIATRY L&D NEW CONSULT HPI: 30 yo F pt with no PPH seen today as pt scored 17 on depression scale. Psychiatry consulted for safety evaluation and recommendations in context of current presentation Per pt, reports this is her fourth (one miscarriage) and just gave to a healthy baby boy via uncomplicated vaginal delivery. Pt did have 'baby blues' s/p first but never took any psychiatric meds. pt reports feeling tired, nervous/anxious/panic and feeling "overwhelmed" s/p delivery/labor and several days before labor due to concerns of low amniotic fluid which may have caused some elevation on scoring on PPDS. Pt is not experiencing any current feelings of depression or feelings to harm self, others, or baby. Over the duration of her , pt denied having any feelings of depression or persistent sadness. Pt excited about her and looks forward to bonding with him once discharged from hospital. Pt denies depressed/sad mood, hopelessness, helplessness, loss of interest, decreased energy, poor sleep/appetite, excessive guilt, anhedonia, or amotivation. Also denies panic/anxiety symptoms, irritability/restlessness, amilcar, or psychosis. denies hx of manic, psychotic, or major depressive episodes Pt currently does not have psychiatrist/therapist out in community. Never sought MH services in past. Currently not on any psychotropic agents. No prior psych med trials. Denies any ETOH, THC or IDU. , lives with two children/hus band, good support system noted. Unknown trauma hx. Unknown FH. No acute medical issues, NKDA Does not have hx of suicide attempts, SIB, or prior psych hospitalizations. Currently denies SI/HI. Denies history of violence, unprovoked aggression, impulsivity, emotional dysregulation, or assaultive behaviors. Does not have access to firearms. Identifies self/family as PPF. No safety concerns noted during encounter. MSE: General Appearance/Behavior: Alert and awake; appears stated age, fair grooming and hygiene; calm and cooperative, fair eye contact, no PMA/PMR, appears a bit tired Speech: coherent, rrr Thought Process: linear, logical, and goal-directed Thought Content: Abnormal Thoughts and Perceptions: None Homicidality / Violent Thoughts: None Suicidality: none Hallucinations: None Delusions: denies paranoia, persecutory, or grandiose delusions Obsessions /compulsions : None Judgment and Insight: fair judgment with fair insight Mood & Affect: "good, little tired" with mood-congruent, appropriate Orientation: oriented to person, place, time Attention/Concentration: intact, follows conversation Memory: grossly intact Language: no unusual or inappropriate language Fund of Knowledge: appropriate Assessment: 30 yo F pt with no PPH seen today as pt scored 17 on depression scale Reports feeling tired, nervous/anxious/panic and feeling "overwhelmed" s/p delivery/labor and several days before labor due to concerns of low amniotic fluid may have caused some elevation on scoring on PPDS. Nonetheless pt current denies SI/HI/AVH. Linear and goal directed in thought. Denies s/s of major depression, amilcar or psychosis Presently, pt does not show any signs of immediate danger to self or others that would warrant a higher level of care. Thus, pt does not meet criteria for 5150 or inpatient psych admission as is not DTS, DTO or GD Plan: Does not warrant inpatient psychiatric hospitalization or 5150 hold at this time No acute safety concerns Pt can be safely discharged back to current residence Does not warrant psychotropic med initiation at this time Supportive tx provided Education provided re: normal maternity blues vs post depression/psychosis Pt verbalized understanding and is receptive to above tx plan This case was discussed with L&D nurse/provider and all parties in agreement with above tx plan Tomasz Howe MD Plan discussed with: Patient TOMASZ HOWE MD Oct 01, 2025 03:49
[2025-10-01 07:44] LABS: Hematocrit 34.8 % (36.0-46.0); Hemoglobin 11.6 g/dL (12.2-16.2); Mean Corpuscular Hemoglobin 28.6 pg (28.0-32.0); Mean Corpuscular Volume 85.8 fL (80.0-100.0); Nucleated Red Blood Cells % 0.1 %
== END 2025-10-01 11:08 | disposition home or self-care (01) | DRG 806 ==
LOC: LDRP 22:09
PROVIDERS: ADMIT Obstetrics & Gynecology; ATTEND Obstetrics & Gynecology
PROC: 3E0R3BZ Introduction of Anesthetic Agent into Spinal Canal, Percutaneous Approach (ICD-10-PCS; 2025-09-29)
PROC: 00HU33Z Insertion of Infusion Device into Spinal Canal, Percutaneous Approach (ICD-10-PCS; 2025-09-29)
PROC: 10E0XZZ Delivery of Products of Conception, External Approach (ICD-10-PCS; principal; 2025-09-30)
PROC: 0HQ9XZZ Repair Perineum Skin, External Approach (ICD-10-PCS; 2025-09-30)
PROC: 3E0DXGC Introduction of Other Therapeutic Substance into Mouth and Pharynx, External Approach (ICD-10-PCS; 2025-09-30)
DX: O24.424 Gestational diabetes mellitus in childbirth, insulin controlled (principal); O41.03X0 Oligohydramnios, third trimester, not applicable or unspecified; Z37.0 Single live birth; Z3A.38 38 weeks gestation of pregnancy; O70.0 First degree perineal laceration during delivery
CPT/HCPCS: 36415; 59025; 59409; 80053; 80307; 81001; 81002; 82948; 82962; 84550; 85025; 85384; 85610; 85730; 86703; 86762; 86780; 86803; 86850; 86900; 86901; 87340; 94760; 94762; 96360; 96361; 96365; 96366; 96374; G0378; J2590; J7060